=== PATIENT | male | born 1960 | race Caucasian/White ===

== ENCOUNTER → 2016-06-22 | Outpatient (CLI) | payer OTHER ==
--- NOTE | 2016-06-22 15:14 | XR ---
EXAMINATION TYPE: XR chest 2V DATE OF EXAM: 06/22/2016 3:01 PM COMPARISON: Prior chest x-ray May 03, 2016. HISTORY: COPD with shortness of breath and cough. TECHNIQUE: Frontal and lateral views of the chest are obtained. FINDINGS: Underlying emphysematous change is felt present. There is no focal air space opacity, pleu ral effusion, or pneumothorax seen. The cardiac silhouette size is within normal limits. The osseo us structures are intact. IMPRESSION: Chronic emphysematous change without acute pulmonary process. No significant change from prior.
== END | disposition home or self-care (01) ==
LOC: RADXRMAIN 14:27
PROVIDERS: ATTEND Family Medicine
DX: J43.9 Emphysema, unspecified (principal)
CPT/HCPCS: 71020

== ENCOUNTER → 2016-09-27 | Outpatient (CLI) | payer OTHER ==
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
== END | disposition home or self-care (01) ==
LOC: RADXRMAIN 15:43
PROVIDERS: ATTEND Family Medicine
DX: M54.42 Lumbago with sciatica, left side (principal)
CPT/HCPCS: 72072; 72100

== ENCOUNTER → 2016-10-12 | Outpatient (CLI) | payer OTHER ==
--- NOTE | 2016-10-12 17:26 | XR ---
EXAMINATION TYPE: XR elbow complete LT DATE OF EXAM: 10/12/2016 COMPARISON: NONE HISTORY: Pain TECHNIQUE: 3 views FINDINGS: I see no fracture nor dislocation. Joint spaces are normal. There is no sign of elbow joint effusion. IMPRESSION: Negative left elbow exam.
== END | disposition home or self-care (01) ==
LOC: RADXRMAIN 16:05
PROVIDERS: ATTEND Nurse Practitioner Family
DX: M25.522 Pain in left elbow (principal)

== ENCOUNTER → 2016-10-28 | Outpatient (CLI) | payer OTHER ==
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
== END | disposition home or self-care (01) ==
LOC: RADMRIMAIN 12:40
PROVIDERS: ATTEND Psychiatry & Neurology Neurology
DX: M51.16 Intervertebral disc disorders with radiculopathy, lumbar region (principal); M50.222 Other cervical disc displacement at C5-C6 level
CPT/HCPCS: 72141; 72148

== ENCOUNTER → 2016-11-16 | Outpatient (CLI) | payer OTHER ==
--- NOTE | 2016-11-16 21:42 | MR ---
Left elbow MRI HISTORY: Left elbow pain Multiplanar multisequence imaging through the left elbow Correlation to plain film 10/12/2016 There is abnormal increased signal involving the common extensor tendon origin compatible with, exten sor tendinitis and partial tear. Biceps tendon shows a normal insertion. Abnormal marrow signal prese nt within the radial head medially may represent a small focus of subchondral edema or possibly geode formation. Articular cartilage signal is thought to be maintained. There is normal insertion of the triceps tendon. Muscle signal is normal. Some subcutaneous edema changes present along the level of t he medial humeral epicondyle, the tendon shows some fluid signal near its origin, a small tear may be present at this level. Small amount of fluid is present within the joint. IMPRESSION: Findings suggestive of tendinosis, partial tear of the common extensor tendon greater hunter n the common flexor tendon origins. Small amount of arthropathy change suspected at the radial head a t its medial aspect.
== END | disposition home or self-care (01) ==
LOC: RADMRIMAIN 20:39
PROVIDERS: ATTEND Nurse Practitioner Family
DX: M25.552 Pain in left hip (principal)

== ENCOUNTER 2016-11-18 18:45 | Emergency (ER) | payer OTHER ==
[2016-11-18 18:57] VITALS: BP 138/86; PULSE 93; RESP 20; TEMP 98
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
== END 2016-11-18 19:25 | disposition home or self-care (01) ==
LOC: EC 18:45
DX: T22.252A Burn of second degree of left shoulder, initial encounter (principal); X58.XXXA Exposure to other specified factors, initial encounter; Z79.899 Other long term (current) drug therapy; M06.9 Rheumatoid arthritis, unspecified; Z87.891 Personal history of nicotine dependence
CPT/HCPCS: 99283

== ENCOUNTER 2017-08-01 16:58 | Emergency (ER) | payer OTHER ==
[2017-08-01 17:35] VITALS: BP 134/74; PULSE 55; RESP 18; TEMP 97.8
[2017-08-01] MEDS ORDERED: KETOROLAC 60 MG/2 ML VIAL IM STA (18:56)
[2017-08-01] MEDS ORDERED: ORPHENADRINE 30 MG/ML 2 ML VIAL IM STA (18:56)
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
== END 2017-08-01 19:40 | disposition home or self-care (01) ==
LOC: EC 16:58
DX: S16.1XXA Strain of muscle, fascia and tendon at neck level, initial encounter (principal); M19.90 Unspecified osteoarthritis, unspecified site; Z87.891 Personal history of nicotine dependence; Z79.1 Long term (current) use of non-steroidal anti-inflammatories (NSAID); V49.9XXA Car occupant (driver) (passenger) injured in unspecified traffic accident, initial encounter
CPT/HCPCS: 99283; 96372 ×2; J2360; J1885

== ENCOUNTER 2018-05-06 23:01 | Emergency (ER) | payer OTHER ==
[2018-05-06 23:17] VITALS: BP 128/79; PULSE 76; RESP 18; TEMP 98.1
[2018-05-06] MEDS ORDERED: AMOXIC-POT CLAV 875MG STARTER 2 EACH TABLET PO STA (23:35)
--- NOTE | 2018-05-06 23:39 | ED ---
General Adult HPI - General Chief complaint: Skin/Abscess/Foreign Body Stated complaint: Facial Swelling Time Seen by Provider: 05/06/18 23:26 Source: patient, RN notes reviewed Mode of arrival: ambulatory Limitations: no limitations - History of Present Illness Initial comments: Patient is a pleasant 58-year-old male presenting to the emergency Department with right-sided facial swelling and discomfort. Onset of symptoms was around 6 PM. Discomfort progressively worse. At one point it seemed like it may be getting better however has worsened since then. No fevers. No trauma. Only right-sided involvement. Patient has not noticed any erythema. No history of similar symptoms previously. Discomfort is moderate. - Related Data Home Medications Medication Instructions Recorded Confirmed Zolpidem Tartrate [Ambien] 5 mg PO HS PRN 12/11/14 05/03/16 Albuterol Inhaler [Ventolin Hfa 1 puff INHALATION RT-Q6H PRN 05/03/16 05/03/16 Inhaler] HYDROcodone/APAP 7.5-325MG [[place] 1 tab PO HS PRN 05/03/16 05/03/16 7.5-325] Mag Carb/Aluminum Hydrox/Algin 10 ml PO BID PRN 05/03/16 05/03/16 [Gaviscon Extra Strength Liquid] Meloxicam [Mobic] 7.5 mg PO DAILY 05/03/16 05/03/16 Multivitamins, Thera [Multivitamin] 1 tab PO DAILY 05/03/16 05/03/16 [place]-3 Fatty Acids/Fish Oil [Fish 1 cap PO DAILY 05/03/16 05/03/16 Oil 1,000 mg Softgel] Previous Rx's Medication Instructions Recorded Lidocaine Viscous 2% [Xylocaine 15 ml MUCOUS MEM Q4H 3 Days ml 05/03/16 Viscous] Bacitracin Oint 28.4 gm TOPICAL BID #1 tube 11/18/16 Orphenadrine [Norflex] 100 mg PO Q12H #10 tablet.er 08/01/17 predniSONE 50 mg PO DAILY #5 tab 08/01/17 Amoxic-Pot Clav 875-125Mg 1 tab PO Q12HR #20 tablet 05/06/18 [Augmentin 875-125] Allergies Allergy/AdvReac Type Severity Reaction Status Date / Time varenicline [From Chantix] AdvReac Unknown Verified 05/06/18 23:17 Review of Systems ROS Statement: Those systems with pertinent positive or pertinent negative responses have been documented in the HPI. ROS Other: All systems not noted in ROS Statement are negative. Constitutional: Denies: fever, chills Eyes: Denies: eye pain ENT: Denies: ear pain, throat pain, dental pain Respiratory: Denies: cough, dyspnea Cardiovascular: Denies: chest pain Endocrine: Denies: fatigue Gastrointestinal: Denies: abdominal pain Genitourinary: Denies: dysuria Musculoskeletal: Denies: back pain Skin: Denies: rash Neurological: Denies: weakness Past Medical History Past Medical History: Chest Pain / Angina, COPD, GERD/Reflux, Hyperlipidemia, Osteoarthritis (OA), Prostate Disorder, Rheumatoid Arthritis (RA) History of Any Multi-Drug Resistant Organisms: None Reported Past Surgical History: No Surgical Hx Reported Past Psychological History: No Psychological Hx Reported Smoking Status: Current every day smoker Past Alcohol Use History: Occasional Past Drug Use History: None Reported General Exam Limitations: no limitations General appearance: alert, in no apparent distress Head exam: Present: atraumatic Eye exam: Present: normal appearance ENT exam: Present: normal oropharynx, other (Right parotid gland is mildly swollen and tender. No Erythema) Neck exam: Present: normal inspection. Absent: lymphadenopathy Respiratory exam: Present: normal lung sounds bilaterally Cardiovascular Exam: Present: regular rate, normal rhythm GI/Abdominal exam: Present: soft. Absent: tenderness Neurological exam: Present: alert, CN II-XII intact Psychiatric exam: Present: normal affect, normal mood Skin exam: Present: normal color Course Vital Signs 05/06/18 23:12 Temperature 98.1 F Pulse Rate 76 Respiratory 18 Rate Blood Pressure 128/79 Disposition Clinical Impression: Parotiditis Disposition: HOME SELF-CARE Condition: Stable Instructions: Parotid Duct Obstruction (ED) Additional Instructions: Please follow-up with primary care physician in the next couple days for recheck. If symptoms continue you may need follow-up with ENT in the future. Use hard candies to promote salivation. Return for fevers, increased pain, redness, swelling, worsening symptoms or other concerns. Prescriptions: Amoxic-Pot Clav 875-125Mg [Augmentin 875-125] 1 tab PO Q12HR #20 tablet Is patient prescribed a controlled substance at d/c from ED?: No Referrals: Tunde Ashley III, MD [Primary Care Provider] - 1-2 days Time of Disposition: 23:39
== END 2018-05-06 23:54 | disposition home or self-care (01) ==
LOC: EC 23:01
DX: K11.20 Sialoadenitis, unspecified (principal); J44.9 Chronic obstructive pulmonary disease, unspecified; M19.90 Unspecified osteoarthritis, unspecified site; M06.9 Rheumatoid arthritis, unspecified; F17.200 Nicotine dependence, unspecified, uncomplicated; Z79.1 Long term (current) use of non-steroidal anti-inflammatories (NSAID); Z88.8 Allergy status to other drugs, medicaments and biological substances
CPT/HCPCS: 99283

== ENCOUNTER 2018-06-28 22:29 | Emergency (ER) | payer OTHER ==
[2018-06-28 22:34] VITALS: TEMP 97.8
[2018-06-28] MEDS ORDERED: AMOXIC-POT CLAV 875MG STARTER 2 EACH TABLET PO STA (23:38)
[2018-06-28] MEDS ORDERED: KETOROLAC 30 MG/ML 1 ML VIAL IM STA (23:39)
--- NOTE | 2018-06-28 23:41 | ED ---
ENT HPI - General Chief complaint: ENT Stated complaint: Swollen face Time Seen by Provider: 06/28/18 23:03 Source: patient Mode of arrival: ambulatory Limitations: no limitations - History of Present Illness Initial comments: 58-year-old male patient presents to the emergency department today for evaluation of right-sided facial swelling. Patient states this started at 4 PM this afternoon. Patient states that he has also had a very dry mouth with this. States that he has had a blocked salivary gland in the past and this feels similar. Patient denies taking any medication or using any measures to improve his symptoms. Denies any fevers or chills with this. Denies any difficulty swallowing or any trismus. Denies sore throat. Patient denies any recent rash, shortness breath, chest pain, abdominal pain, nausea, vomiting, diarrhea, constipation, back pain, numbness, tingling, dizziness, weakness, hematuria, dysuria, urinary urgency, urinary frequency, headache, visual changes , or any other complaints. - Related Data Home Medications Medication Instructions Recorded Confirmed Zolpidem Tartrate [Ambien] 5 mg PO HS PRN 12/11/14 05/03/16 Albuterol Inhaler [Ventolin Hfa 1 puff INHALATION RT-Q6H PRN 05/03/16 05/03/16 Inhaler] HYDROcodone/APAP 7.5-325MG [[place] 1 tab PO HS PRN 05/03/16 05/03/16 7.5-325] Mag Carb/Aluminum Hydrox/Algin 10 ml PO BID PRN 05/03/16 05/03/16 [Gaviscon Extra Strength Liquid] Meloxicam [Mobic] 7.5 mg PO DAILY 05/03/16 05/03/16 Multivitamins, Thera [Multivitamin] 1 tab PO DAILY 05/03/16 05/03/16 [place]-3 Fatty Acids/Fish Oil [Fish 1 cap PO DAILY 05/03/16 05/03/16 Oil 1,000 mg Softgel] Previous Rx's Medication Instructions Recorded Lidocaine Viscous 2% [Xylocaine 15 ml MUCOUS MEM Q4H 3 Days ml 05/03/16 Viscous] Bacitracin Oint 28.4 gm TOPICAL BID #1 tube 11/18/16 Orphenadrine [Norflex] 100 mg PO Q12H #10 tablet.er 08/01/17 predniSONE 50 mg PO DAILY #5 tab 08/01/17 Amoxic-Pot Clav 875-125Mg 1 tab PO Q12HR #20 tablet 05/06/18 [Augmentin 875-125] Amoxic-Pot Clav 875-125Mg 1 tab PO Q12HR #20 tablet 06/28/18 [Augmentin 875-125] Allergies Allergy/AdvReac Type Severity Reaction Status Date / Time varenicline [From Chantix] AdvReac Unknown Verified 06/28/18 23:09 Review of Systems ROS Statement: Those systems with pertinent positive or pertinent negative responses have been documented in the HPI. ROS Other: All systems not noted in ROS Statement are negative. Past Medical History Past Medical History: Chest Pain / Angina, COPD, GERD/Reflux, Hyperlipidemia, Osteoarthritis (OA), Prostate Disorder, Rheumatoid Arthritis (RA) History of Any Multi-Drug Resistant Organisms: None Reported Past Surgical History: No Surgical Hx Reported Past Psychological History: No Psychological Hx Reported Smoking Status: Current some day smoker Past Alcohol Use History: Occasional Past Drug Use History: None Reported General Exam Limitations: no limitations General appearance: alert, in no apparent distress, other (This is a well- developed, well-nourished adult male patient in no acute distress. Vital signs upon presentation are temperature 97.8F, pulse 88, respirations 19, blood pressure 132/86, pulse ox 94% on room air.) Eye exam: Present: normal appearance, PERRL, EOMI. Absent: scleral icterus, conjunctival injection, periorbital swelling ENT exam: Present: normal oropharynx, mucous membranes moist, TM's normal bilaterally, other (Patient has right sided facial swelling to the submandibular region. Area is tender to touch. No erythema. Palpation around the right lower dentition is unremarkable no evidence of abscess.). Absent: normal exam Neck exam: Present: normal inspection. Absent: tenderness, meningismus, lymphadenopathy Respiratory exam: Present: normal lung sounds bilaterally. Absent: respiratory distress, wheezes, rales, rhonchi, stridor Cardiovascular Exam: Present: regular rate, normal rhythm, normal heart sounds. Absent: systolic murmur, diastolic murmur, rubs, gallop, clicks Neurological exam: Present: alert, oriented X3, CN II-XII intact Psychiatric exam: Present: normal affect, normal mood Skin exam: Present: warm, dry, intact, normal color. Absent: rash Course Vital Signs 06/28/18 06/28/18 22:30 23:53 Temperature 97.8 F Pulse Rate 88 86 Respiratory 19 18 Rate Blood Pressure 132/86 131/91 O2 Sat by Pulse 94 L 94 L Oximetry Medical Decision Making - Medical Decision Making 58 yearr-old male patient presents to the emergency department today for evaluation of swelling to the right side of his face. Physical examination does reveal swelling and tenderness to the submandibular region. He is afebrile. Swallowing without difficulty. Has no trismus. Patient has had salivary gland blockage in the past and states this feels similar. Patient will be discharged home with instructions to suck on hard candies especially lemon drops to promote salivation. He is given a prescription for augmentin for possiblity of infection to the salivary gland. He is instructed to follow- up with the ENT specialist for further evaluation. Return parameters were discussed in detail. He verbalizes understanding and agrees with this plan. Disposition Clinical Impression: Sialoadenitis Disposition: HOME SELF-CARE Condition: Good Instructions (If sedation given, give patient instructions): Sialoadenitis (ED) Additional Instructions: Second hard candies or lemon drops to promote salivation. Complete antibiotic prescription and full. Follow-up with the ears, nose, throat specialist for further evaluation as soon as possible. Return to the emergency department immediately for any new, worsening, or concerning symptoms. Prescriptions: Amoxic-Pot Clav 875-125Mg [Augmentin 875-125] 1 tab PO Q12HR #20 tablet Is patient prescribed a controlled substance at d/c from ED?: No Referrals: Tunde Ashley III, MD [Primary Care Provider] - 1-2 days Time of Disposition: 23:41
[2018-06-28 23:56] VITALS: BP 131/91; PULSE 86; RESP 18
== END 2018-06-28 23:53 | disposition home or self-care (01) ==
LOC: EC 22:29
DX: K11.20 Sialoadenitis, unspecified (principal); J44.9 Chronic obstructive pulmonary disease, unspecified; M19.90 Unspecified osteoarthritis, unspecified site; M06.9 Rheumatoid arthritis, unspecified; F17.200 Nicotine dependence, unspecified, uncomplicated; Z87.19 Personal history of other diseases of the digestive system; Z79.1 Long term (current) use of non-steroidal anti-inflammatories (NSAID); Z88.8 Allergy status to other drugs, medicaments and biological substances
CPT/HCPCS: 99283; 96372; J1885

== ENCOUNTER 2018-07-25 08:27 | Emergency (ER) | payer OTHER ==
[2018-07-25 08:35] VITALS: RESP 18
[2018-07-25] MEDS ORDERED: FAMOTIDINE 20 MG/2 ML VIAL IV STA (09:39)
[2018-07-25] MEDS ORDERED: ONDANSETRON 4 MG/2 ML VIAL IVP STA (09:39)
[2018-07-25] MEDS ORDERED: SODIUM CHLORIDE 0.9% 500 ML 500 ML IV STA (09:39)
--- NOTE | 2018-07-25 09:43 | ED ---
General Adult HPI - General Chief complaint: GI Bleed Stated complaint: black stool/upper abdominal pain Time Seen by Provider: 07/25/18 08:49 Source: patient, RN notes reviewed Mode of arrival: ambulatory Limitations: no limitations - History of Present Illness Initial comments: Patient is a pleasant 58-year-old male presenting to the emergency Department with epigastric discomfort. Symptoms have been present and progressive over the past several days. Patient was somewhat constipated and took Senokot. Following this patient has had black stools. Patient has been nauseated and did vomit a couple times. No color change noticed with emesis. No fevers. Discomfort is epigastric without radiation. No history of similar symptoms previously. Patient does occasionally take some arthritis medication with aspirin and it. Patient states he takes this usually about once per day, sometimes twice. Patient has tried Pepto-Bismol over the past couple of days without improvement of symptoms. Patient has had decreased appetite. - Related Data Home Medications Medication Instructions Recorded Confirmed HYDROcodone/APAP 7.5-325MG [[place] 1 tab PO BID PRN 05/03/16 07/25/18 7.5-325] Multivitamins, Thera [Multivitamin] 1 tab PO DAILY 05/03/16 07/25/18 [place]-3 Fatty Acids/Fish Oil [Fish 1 cap PO DAILY 05/03/16 07/25/18 Oil 1,000 mg Softgel] Ergocalciferol [Vitamin D2] 50,000 unit PO FR 07/25/18 07/25/18 Lipitor (Unknown) 1 tab PO DAILY 07/25/18 07/25/18 Sertraline [Zoloft] 100 mg PO DAILY 07/25/18 07/25/18 Previous Rx's Medication Instructions Recorded Ondansetron Odt [Zofran Odt] 4 mg PO Q8HR PRN #10 tab 07/25/18 Pantoprazole [Protonix] 40 mg PO DAILY #30 tablet. 07/25/18 Allergies Allergy/AdvReac Type Severity Reaction Status Date / Time varenicline [From Chantix] AdvReac Unknown Verified 07/25/18 10:35 Review of Systems ROS Statement: Those systems with pertinent positive or pertinent negative responses have been documented in the HPI. ROS Other: All systems not noted in ROS Statement are negative. Constitutional: Denies: fever Eyes: Denies: eye pain ENT: Denies: ear pain Respiratory: Denies: cough Cardiovascular: Denies: chest pain Endocrine: Denies: fatigue Gastrointestinal: Reports: abdominal pain, nausea, vomiting, melena Genitourinary: Denies: dysuria Musculoskeletal: Denies: back pain Skin: Denies: rash Neurological: Denies: headache Past Medical History Past Medical History: Chest Pain / Angina, COPD, GERD/Reflux, Hyperlipidemia, Osteoarthritis (OA), Prostate Disorder, Rheumatoid Arthritis (RA) History of Any Multi-Drug Resistant Organisms: None Reported Past Surgical History: No Surgical Hx Reported Past Psychological History: No Psychological Hx Reported Smoking Status: Current some day smoker Past Alcohol Use History: Occasional Past Drug Use History: None Reported General Exam Limitations: no limitations General appearance: alert, in no apparent distress Head exam: Present: atraumatic Eye exam: Present: normal appearance Neck exam: Present: normal inspection Respiratory exam: Present: normal lung sounds bilaterally Cardiovascular Exam: Present: regular rate, normal rhythm Expanded Peripheral pulses: 2+: Posterior Tibialis (R), Posterior Tibialis (L) GI/Abdominal exam: Present: soft, tenderness (Moderate epigastric tenderness to palpation), normal bowel sounds. Absent: distended, guarding, rebound, rigid, pulsatile mass Rectal exam: Present: normal inspection Extremities exam: Present: normal inspection Neurological exam: Present: alert Psychiatric exam: Present: normal affect, normal mood Skin exam: Present: normal color Course Vital Signs 07/25/18 08:34 Temperature 98.4 F Pulse Rate 112 H Respiratory 18 Rate Blood Pressure 124/85 O2 Sat by Pulse 97 Oximetry Medical Decision Making - Medical Decision Making Patient reevaluated and improved. Patient states symptoms are tolerable at this time. Patient is comfortable with discharge home. Patient updated on results and need for follow-up. Patient is aware that he will need to take medication as well as need EGD and follow-up regarding concerns for pulmonary nodule and lesion of the pancreas. Patient is made aware that his doctor can review the films and ordered these follow-up test for him. - Lab Data Result diagrams: 07/25/18 10:04 07/25/18 10:04 Lab Results 07/25/18 07/25/18 07/25/18 Range/Units 10:04 10:04 10:04 WBC 9.3 (3.8-10.6) k/uL RBC 5.65 (4.30-5.90) m/uL Hgb 16.9 (13.0-17.5) gm/dL Hct 50.7 (39.0-53.0) % MCV 89.8 (80.0-100.0) fL MCH 30.0 (25.0-35.0) pg MCHC 33.4 (31.0-37.0) g/dL RDW 13.5 (11.5-15.5) % Plt Count 225 (150-450) k/uL Neutrophils % 67 % Lymphocytes % 21 % Monocytes % 6 % Eosinophils % 4 % Basophils % 1 % Neutrophils # 6.2 (1.3-7.7) k/uL Lymphocytes # 1.9 (1.0-4.8) k/uL Monocytes # 0.6 (0-1.0) k/uL Eosinophils # 0.4 (0-0.7) k/uL Basophils # 0.1 (0-0.2) k/uL PT (9.0-12.0) sec INR (<1.2) APTT (22.0-30.0) sec Sodium 141 (137-145) mmol/L Potassium 4.4 (3.5-5.1) mmol/L Chloride 107 (98-107) mmol/L Carbon Dioxide 26 (22-30) mmol/L Anion Gap 8 mmol/L BUN 24 H (9-20) mg/dL Creatinine 0.88 (0.66-1.25) mg/dL Est GFR (CKD-EPI)AfAm >90 (>60 ml/min/1.73 sqM) Est GFR (CKD-EPI)NonAf >90 (>60 ml/min/1.73 sqM) Glucose 95 (74-99) mg/dL Calcium 9.9 (8.4-10.2) mg/dL Total Bilirubin 0.8 (0.2-1.3) mg/dL AST 18 (17-59) U/L ALT 32 (21-72) U/L Alkaline Phosphatase 79 (38-126) U/L Total Protein 6.9 (6.3-8.2) g/dL Albumin 4.2 (3.5-5.0) g/dL Lipase 65 (23-300) U/L Stool Occult Blood Negative (Negative) 07/25/18 Range/Units 10:04 WBC (3.8-10.6) k/uL RBC (4.30-5.90) m/uL Hgb (13.0-17.5) gm/dL Hct (39.0-53.0) % MCV (80.0-100.0) fL MCH (25.0-35.0) pg MCHC (31.0-37.0) g/dL RDW (11.5-15.5) % Plt Count (150-450) k/uL Neutrophils % % Lymphocytes % % Monocytes % % Eosinophils % % Basophils % % Neutrophils # (1.3-7.7) k/uL Lymphocytes # (1.0-4.8) k/uL Monocytes # (0-1.0) k/uL Eosinophils # (0-0.7) k/uL Basophils # (0-0.2) k/uL PT 10.1 (9.0-12.0) sec INR 0.9 (<1.2) APTT 29.3 (22.0-30.0) sec Sodium (137-145) mmol/L Potassium (3.5-5.1) mmol/L Chloride (98-107) mmol/L Carbon Dioxide (22-30) mmol/L Anion Gap mmol/L BUN (9-20) mg/dL Creatinine (0.66-1.25) mg/dL Est GFR (CKD-EPI)AfAm (>60 ml/min/1.73 sqM) Est GFR (CKD-EPI)NonAf (>60 ml/min/1.73 sqM) Glucose (74-99) mg/dL Calcium (8.4-10.2) mg/dL Total Bilirubin (0.2-1.3) mg/dL AST (17-59) U/L ALT (21-72) U/L Alkaline Phosphatase (38-126) U/L Total Protein (6.3-8.2) g/dL Albumin (3.5-5.0) g/dL Lipase (23-300) U/L Stool Occult Blood (Negative) - Radiology Data Radiology results: report reviewed (Computed tomography scan of the abdomen pelvis does have concern for peptic ulcer disease duodenum. Also pulmonary nodule and probable cystic lesion pancreatic head.) Disposition Clinical Impression: Peptic ulcer, Abdominal pain Disposition: HOME SELF-CARE Condition: Stable Instructions (If sedation given, give patient instructions): Abdominal Pain (ED), Peptic Ulcer (ED) Additional Instructions: Please follow-up with primary care physician in the next couple of days for recheck. You will likely need to have further testing such as EGD or similar. Please also have primary care physician review computed tomography scan results regarding follow-up testing. Return for increased pain, vomiting, not tolerating oral intake, worsening symptoms or other concerns. Prescriptions: Pantoprazole [Protonix] 40 mg PO DAILY #30 tablet. Ondansetron Odt [Zofran Odt] 4 mg PO Q8HR PRN #10 tab PRN Reason: Nausea Is patient prescribed a controlled substance at d/c from ED?: No Referrals: Tunde Ashley III, MD [Primary Care Provider] - 1-2 days Lolis Galeano MD [STAFF PHYSICIAN] - 1-2 days Time of Disposition: 11:15
[2018-07-25 10:22] LABS: Basophils # (A) 0.1 k/uL (0-0.2); Basophils % (A) 1 %; Eosinophils # (A) 0.4 k/uL (0-0.7); Eosinophils % (A) 4 %; HCT 50.7 % (39.0-53.0); HGB 16.9 gm/dL (13.0-17.5); Lymphocytes # (A) 1.9 k/uL (1.0-4.8); Lymphocytes % (A) 21 %; MCHC 33.4 g/dL (31.0-37.0); MCV 89.8 fL (80.0-100.0); Mean Platelet Volume 7.1; Monocytes # (A) 0.6 k/uL (0-1.0); Monocytes % (A) 6 %; Neutrophils # (A) 6.2 k/uL (1.3-7.7); Neutrophils % (A) 67 %; Platelet Count 225 k/uL (150-450); RBC 5.65 m/uL (4.30-5.90); RDW 13.5 % (11.5-15.5); WBC 9.3 k/uL (3.8-10.6)
[2018-07-25 10:30] LABS: INR 0.9 (<1.2); Partial Thromboplastin Time 29.3 sec (22.0-30.0); Prothrombin Time 10.1 sec (9.0-12.0)
[2018-07-25 10:43] LABS: ALT 32 U/L (21-72); AST 18 U/L (17-59); Albumin 4.2 g/dL (3.5-5.0); Alkaline Phosphatase 79 U/L (38-126); Anion Gap 8 mmol/L; Blood Urea Nitrogen 24 mg/dL (9-20); Calcium 9.9 mg/dL (8.4-10.2); Carbon Dioxide 26 mmol/L (22-30); Chloride 107 mmol/L (98-107); Glucose 95 mg/dL (74-99); Lipase 65 U/L (23-300); Potassium 4.4 mmol/L (3.5-5.1); Sodium 141 mmol/L (137-145); Total Bilirubin 0.8 mg/dL (0.2-1.3); Total Protein 6.9 g/dL (6.3-8.2)
--- NOTE | 2018-07-25 10:56 | CT ---
EXAMINATION TYPE: CT abdomen pelvis w con DATE OF EXAM: 07/25/2018 COMPARISON: NONE HISTORY: 58-year-old male RUQ pain TECHNIQUE: Contiguous axial scanning of the abdomen and pelvis following administration of 100 ml Iso feroz 300 IV contrast. Delayed images through the kidneys and coronal/sagittal reconstructions perform ed. CT DLP: 879 mGycm Automated exposure control for dose reduction was used. FINDINGS: Heart normal size without pericardial effusion. Prominent dependent groundglass posterior lung bases, probably atelectasis. Partially visualized 4 mm peripheral right middle lobe pulmonary nodule, axial image 1. Tiny hiatal hernia. No focal liver lesion or biliary ductal dilatation. Portal venous system is patent. Incidental 6 mm hypodense lesion in the pancreatic head, axial image 33. Gallbladder, adrenal glands, kidneys, spleen appear within normal limits. There is apparent focal mucosal hyperemia of the first and second portions of the duodenum and possib le very subtle eccentric wall thickening and a loculated air, refer to coronal image 33, axial image 30, and sagittal image 51. Couple adjacent borderline sized lymph nodes measuring up to 6 mm. No dilated small bowel, free fluid, or free air. Tiny fatty umbilical hernia. Normal appendix. Mild stool burden. Oral contrast progressed to the rectum. Mild circumferential wall thickening of the sigmoid colon likely due to nondistention. Bladder is urine distended. No abnormal fluid collection in the pelvis or pelvic lymphadenopathy. Bones: Mild degenerative spurring of the hips. Bone island in the right femoral head. Some facet arth ropathy lower lumbar spine. IMPRESSION: 1. SOME APPARENT MUCOSAL HYPEREMIA OF THE FIRST AND SECOND PORTION OF THE DUODENUM AND POSSIBLE SUBTL E ECCENTRIC WALL THICKENING WITH A LOCULE OF AIR ALONG THE WALL OF THE PROXIMAL DUODENUM. CONSIDER UN DERLYING PEPTIC ULCER DISEASE. NO ABSCESS OR PERFORATION SEEN. 2. PARTIALLY VISUALIZED 4 MM RIGHT MIDDLE LOBE PULMONARY NODULE. SIX-MONTH FOLLOW-UP CONTRAST ENHANCE D CT CHEST RECOMMENDED TO REASSESS AND SURVEYED THE REMAINDER OF THE LUNGS. 3. A 6 MM HYPODENSE, PROBABLY CYSTIC LESION OF THE PANCREATIC HEAD. A ONE-YEAR FOLLOW-UP, PREFERABLY WITH MRI IS RECOMMENDED FOR AN INCIDENTAL LESION OF THIS SIZE.
[2018-07-25] MEDS ORDERED: PANTOPRAZOLE 40 MG TABLET PO STA (11:17)
[2018-07-25 11:49] VITALS: BP 125/96; PULSE 68; TEMP 97.8
== END 2018-07-25 11:49 | disposition home or self-care (01) ==
LOC: EC 08:27
DX: K27.4 Chronic or unspecified peptic ulcer, site unspecified, with hemorrhage (principal); E78.5 Hyperlipidemia, unspecified; F17.200 Nicotine dependence, unspecified, uncomplicated; Z79.899 Other long term (current) drug therapy; Z88.8 Allergy status to other drugs, medicaments and biological substances
CPT/HCPCS: 36415; 80053; 83690; 85025; 85610; 85730; 82272; 74177; 99284; 96374; 96375; 96361 ×2; J2405; Q9967

== ENCOUNTER 2018-08-08 15:13 | Emergency (ER) | payer OTHER ==
[2018-08-08] MEDS ORDERED: MORPHINE SULFATE 4 MG/ML SYRINGE IVP STA (16:06)
[2018-08-08] MEDS ORDERED: DIAZEPAM 5 MG TAB PO STA (16:07)
[2018-08-08] MEDS ORDERED: MORPHINE SULFATE 4 MG/ML SYRINGE IM STA (16:22)
[2018-08-08 16:28] LABS: Appearance,Urine Clear (Clear); Bilirubin,Urine Negative (Negative); Blood,Urine Negative (Negative); Color,Urine Yellow; Glucose,Urine (UA) Negative (Negative); Ketones,Urine Negative (Negative); Leukocyte Esterase,Urine Negative (Negative); Nitrite,Urine Negative (Negative); PH, Urine 5.5 (5.0-8.0); Protein,Urine Negative (Negative); Specific Gravity,Urine 1.026 (1.001-1.035)
--- NOTE | 2018-08-08 16:46 | ED ---
Back Pain HPI - General Chief Complaint: Back Pain/Injury Stated Complaint: R side pain Time Seen by Provider: 08/08/18 15:41 Source: patient Limitations: no limitations - History of Present Illness Initial Comments: 58-year-old male presenting today for chief complaint of low back pain. Patient states he has right-sided low back pain as been increasing for the past 2-3 days. Patient cannot think of a specific instance which would have initiate the pain. Patient denies loss of bowel bladder control, urinary retention, fever or chills IV drug use or history of cancer. Patient states there are nodules that they're watching on his lungs as well as a cyst on the pancreas. Patient states he has scheduled outpatient appointments for follow-up in the next 2-3 weeks. Patient denies recent weight loss he denies numbness tingling or loss sensation of the lower extremity. Patient does admit to history of chronic low back pain as well as right-sided sciatica. Patient denies any increase in the right-sided sciatica. Patient denies any urgency frequency dysuria or hematuria. Patient has a chest pain dyspnea and dyspnea on exertion nausea vomiting or abdominal pain. Patient denies testicular pain remaining review of system negative. Upon arrival patient appears well signs of acute distress. Patient had recent CT of the abdomen and pelvis which reviewed no abnormalities of the osseous structures. Vital signs within acceptable limits upon arrival patient and playing without difficulty. Appearing comfortable. - Related Data Home Medications Medication Instructions Recorded Confirmed HYDROcodone/APAP 7.5-325MG [[place] 1 tab PO BID PRN 05/03/16 08/08/18 7.5-325] Multivitamins, Thera [Multivitamin] 1 tab PO DAILY 05/03/16 08/08/18 [place]-3 Fatty Acids/Fish Oil [Fish 1 cap PO DAILY 05/03/16 08/08/18 Oil 1,000 mg Softgel] Ergocalciferol [Vitamin D2] 50,000 unit PO FR 07/25/18 08/08/18 Sertraline [Zoloft] 100 mg PO DAILY 07/25/18 08/08/18 Previous Rx's Medication Instructions Recorded Pantoprazole [Protonix] 40 mg PO DAILY #30 tablet. 07/25/18 Allergies Allergy/AdvReac Type Severity Reaction Status Date / Time varenicline [From Chantix] AdvReac Unknown Verified 08/08/18 17:02 Review of Systems ROS Statement: Those systems with pertinent positive or pertinent negative responses have been documented in the HPI. ROS Other: All systems not noted in ROS Statement are negative. Past Medical History Past Medical History: Chest Pain / Angina, COPD, GERD/Reflux, Hyperlipidemia, Osteoarthritis (OA), Prostate Disorder, Rheumatoid Arthritis (RA) History of Any Multi-Drug Resistant Organisms: None Reported Past Surgical History: No Surgical Hx Reported Past Psychological History: No Psychological Hx Reported Smoking Status: Current some day smoker Past Alcohol Use History: Occasional Past Drug Use History: None Reported General Exam - General Exam Comments Initial Comments: General: The patient is awake and alert, in no distress, and does not appear acutely ill. Eye: Pupils are equal, round and reactive to light, extra-ocular movements are intact. No nystagmus. There is normal conjunctiva bilaterally. No signs of icterus. Ears, nose, mouth and throat: There are moist mucous membranes and no oral lesions. Neck: The neck is supple, there is no tenderness or JVD. Cardiovascular: There is a regular rate and rhythm. No murmur, rub or gallop is appreciated. Respiratory: Lungs are clear to auscultation, respirations are non-labored, breath sounds are equal. No wheezes, stridor, rales, or rhonchi. Musculoskeletal: Small scabs located on various regions the body. Normal inspection of the cervical thoracic lumbar spine. There is no midline tenderness to palpation at the cervical thoracic or lumbar spine. Patient amidst to right-sided paravertebral tenderness. Palpable muscle spasm. Patient is able to fully range at the lumbar spine with forward flexion extension and lateral flexion and rotation. Patient does admit to discomfort with all ranges of motion. Normal ROM, no tenderness of the lower extremities negative straight leg raise bilaterally. Strength 5/5 of the lower extremities equal and comparison bilaterally. Sensation intact of the lower extremities including the saddle region equal comparison bilaterally. Radial and DP pulses equal bilaterally 2+. No myoclonus or fasciculations noted. Neurological: A&O x 3. CN II-XII intact, There are no obvious motor or sensory deficits. Coordination appears grossly intact. Speech is normal. Skin: Skin is warm and dry and no rashes or lesions are noted. Psychiatric: Cooperative, appropriate mood & affect, normal judgment. Limitations: no limitations Course Vital Signs 08/08/18 08/08/18 15:21 17:43 Temperature 98.4 F 98.2 F Pulse Rate 76 68 Respiratory 16 18 Rate Blood Pressure 111/77 119/89 O2 Sat by Pulse 98 94 L Oximetry Medical Decision Making - Medical Decision Making 58-year-old male presenting for low back pain. Patient had recent CT of the abdomen and pelvis revealing no acute osseous process. Patient denies injury. Patient denies IV drug use, fever chills or any other concerns for infectious etiology. Patient afebrile upon arrival. Patient has no neurological deficits. Patient has no midline tenderness. Patient has no C paravertebral tenderness. Urinalysis unremarkable. No hematuria. Patient has no abdominal pain, benign abdominal exam. At this time given no red flags with recent imaging studies and well appearing with no acute distress on exam, the patient stated for discharge. I discussed the case attending provider Dr. Josue was agreeable discharge and plan. Patient was provided pain medications emergency department. Upon reevaluation patient states it had almost resolved. Patient was given instruction to follow up outpatient with primary care provider. Patient verbalizes understanding. Patient discharged in stable condition where all return parameters discussed. All questions were answered to the best viability prior to patient's discharge. - Lab Data Lab Results 08/08/18 Range/Units 16:16 Urine Color Yellow Urine Appearance Clear (Clear) Urine pH 5.5 (5.0-8.0) Ur Specific [place] 1.026 (1.001-1.035) Urine Protein Negative (Negative) Urine Glucose (UA) Negative (Negative) Urine Ketones Negative (Negative) Urine Blood Negative (Negative) Urine Nitrite Negative (Negative) Urine Bilirubin Negative (Negative) Urine Urobilinogen 2.0 (<2.0) mg/dL Ur Leukocyte Esterase Negative (Negative) Disposition Clinical Impression: Low back strain, Acute exacerbation of chronic low back pain Disposition: HOME SELF-CARE Condition: Good Instructions (If sedation given, give patient instructions): Acute Low Back Pain (ED), Chronic Back Pain (ED) Additional Instructions: Please use medication as discussed. Please follow-up with family doctor in the next 2 days of symptoms have not improved. Please return to emergency room if the symptoms increase or worsen or for any other concerns. Is patient prescribed a controlled substance at d/c from ED?: No Referrals: Tunde Ashley III, MD [Primary Care Provider] - 1-2 days Time of Disposition: 16:45
[2018-08-08 17:47] VITALS: BP 119/89; PULSE 68; RESP 18; TEMP 98.2
== END 2018-08-08 17:47 | disposition home or self-care (01) ==
LOC: EC 15:13
DX: S39.012A Strain of muscle, fascia and tendon of lower back, initial encounter (principal); F17.200 Nicotine dependence, unspecified, uncomplicated; Z87.39 Personal history of other diseases of the musculoskeletal system and connective tissue; Z79.899 Other long term (current) drug therapy; Z88.8 Allergy status to other drugs, medicaments and biological substances; X58.XXXA Exposure to other specified factors, initial encounter
CPT/HCPCS: 81003; 96372; 99284

== ENCOUNTER → 2018-08-18 | Outpatient (CLI) | payer OTHER ==
--- NOTE | 2018-08-18 08:01 | MR ---
EXAMINATION TYPE: MR abdomen wo/w con DATE OF EXAM: 08/18/2018 COMPARISON: CT abdomen and pelvis July 25, 2018. HISTORY: abnormal CT CONTRAST: Standard multiplanar, multisequence MRI departmental protocol utilizing 8.5 mL intravenous Gadavist g adolinium contrast. Imaging is performed of the abdomen focusing on the pancreas. FINDINGS: Pancreas: Pancreas is overall normal in size. Duct is visualized but nondilated. There is suspected d ivisum as pancreatic duct appears to empty into second portion of duodenum caudal to the common bile duct seen best coronal image 17 series 201[address] Corresponding to CT there is a 5 by 3 mm T2 hyperintense focus in the pancreatic head just medial to the common bile duct coronal image 17 and axial image 14 series 501, lesion is too small to further characterize but does not show enhancement seen best delay ed phased axial image 225. No communication with adjacent minor pancreatic duct is noted. No surround ing fluid or fat stranding is seen. Other: Lung bases are grossly clear. The liver, gallbladder, spleen, and both adrenal glands are norm al in size. There is no concerning renal mass or hydronephrosis. There is no suspicious small or larg e bowel dilatation. There is no concerning abdominal fluid collection. Visualized osseous structures are intact. IMPRESSION: Correlating with CT there is 5 x 3 mm thin-walled cyst or cystic lesion without suspiciou s nodularity or solid component in the pancreatic head, almost certainly benign in etiology, no ducta l communication is seen. Advise repeat MRI in one-year time to reassess.
== END | disposition home or self-care (01) ==
LOC: RADMRIMAIN 06:52
DX: R93.5 Abnormal findings on diagnostic imaging of other abdominal regions, including retroperitoneum (principal)
CPT/HCPCS: 74183

== ENCOUNTER 2018-08-21 09:17 | Day surgery (SDC) | payer OTHER ==
[2018-08-17 12:45] VITALS: BMI 28.3
[~2018-08-21 09:17] MED LIST: LACTATED RINGERS 1,000 ML IV SCH; MIDAZOLAM (PF) 2 MG/2 ML VIAL IV PRN
[2018-08-21 09:44] VITALS: TEMP 97.7
[2018-08-21] MEDS ORDERED: LIDOCAINE 1% 20 ML VIAL (10MG/ML) FOR IV START INTRADERMA ONE (09:47)
[2018-08-21] MEDS ORDERED: LIDOCAINE 1% INJ 10MG/ML (20 ML MDV) ONE (10:28)
[2018-08-21] MEDS ORDERED: PROPOFOL 10 MG/ML 20 ML VIAL IV ONE (10:28)
[2018-08-21] MEDS ORDERED: fentaNYL (PF) 50 MCG/ML 2 ML AMP ONE (10:28)
--- NOTE | 2018-08-21 11:08 | P.PCN ---
Date of Procedure: 08/21/18 Procedure(s) Performed: Procedures: 1. Esophagogastroduodenoscopy and biopsy. 2. Total colonoscopy. Preoperative diagnosis: Abdominal pain and rectal bleeding. Postoperative diagnosis: 1. Small hiatal hernia with no obvious esophagitis or complicated reflux disease. 2. Antral gastritis. 3. Multiple biopsies obtained from the duodenum, antrum and esophagus. 4. Colon exam reveals low-grade internal hemorrhoids not bleeding at the time of the exam, otherwise normal colon and terminal ileum. Preparation: HalfLytely prep. Sedation: Was provided by anesthesia. Brief clinical history: The patient is a 58-year-old male who was evaluated in the office earlier this month following her visit to the emergency room last month for abdominal pain and rectal bleeding/black stools. CT scan showed possible ulcer and abnormalities of the lung then pancreas. He was started on omeprazole. This evaluation is to assess for inflammatory bowel disease, neoplasia, complicated reflux disease or other pathology. Procedure: With the patient on his left lateral decubitus position and after informed consent and adequate sedation, I passed the Olympus-GIF H190 video upper endoscope through the cricopharyngeus down the esophagus. GE junction was around 41 cm from the incisors and there was a small sliding hiatal hernia but no obvious esophagitis or complicated reflux disease. The endoscope was then passed into the stomach which was insufflated with air and inspected in detail including the retroflex view in the cardia. There was some mottling and erythema in the antrum and few scattered erosions but no bleeding or gastric outlet obstruction. Pyloric channel did not show any ulcers. Duodenal bulb, post bulbar area and descending duodenum appeared within normal limits. I obtained biopsies from the duodenum, antrum and esophagus then the endoscope was withdrawn and I proceeded to perform the colonoscopy. Perianal area did not show any fissures or fistulas. There were no masses felt on digital rectal examination. The Olympus CFH 190 L video colonoscope was then inserted in the rectum in the usual fashion and advanced to the cecum. I intubated the ileocecal valve and examined the terminal ileum. The mucosa appeared healthy. No polyps or tumors were seen or any obvious diverticular disease or other pathology. I retroflexed the endoscope in the rectum before the endoscope was withdrawn. Low-grade internal hemorrhoids were noted with no evidence of bleeding. The patient tolerated the procedure well. Plan: The patient was reassured. Discussed dietary measures and local care for hemorrhoids. Will await biopsy results. He is scheduled to follow-up in the office next month and further plans will be made based on his course and biopsy results. For colon cancer screening, I recommended repeat exam in 10 years. I will keep you updated on his progress.
[2018-08-21 11:20] VITALS: BP 136/93; PULSE 72; RESP 16
== END 2018-08-21 11:55 | disposition home or self-care (01) ==
LOC: ORWHC2ENDO 09:17
DX: K44.9 Diaphragmatic hernia without obstruction or gangrene (principal); K29.50 Unspecified chronic gastritis without bleeding; K64.8 Other hemorrhoids; J44.9 Chronic obstructive pulmonary disease, unspecified; M19.90 Unspecified osteoarthritis, unspecified site; E78.5 Hyperlipidemia, unspecified; Z88.8 Allergy status to other drugs, medicaments and biological substances; F17.210 Nicotine dependence, cigarettes, uncomplicated; M06.9 Rheumatoid arthritis, unspecified; I10 Essential (primary) hypertension; K21.9 Gastro-esophageal reflux disease without esophagitis; F32.9 Major depressive disorder, single episode, unspecified; Z79.891 Long term (current) use of opiate analgesic; Z79.899 Other long term (current) drug therapy
CPT/HCPCS: 88305; 45378; 43239; J2001; J3010; J2704

== ENCOUNTER → 2018-08-22 | Outpatient (CLI) | payer OTHER ==
--- NOTE | 2018-08-22 09:16 | CT ---
EXAMINATION TYPE: CT chest w con DATE OF EXAM: 08/22/2018 COMPARISON: CT abdomen pelvis dated 07/25/2018 HISTORY: lung nodule CT DLP: 363.9 mGycm. Automated Exposure Control for Dose Reduction was Utilized. TECHNIQUE: CT scan of the thorax is performed following with IV Contrast, patient injected with 100 mL of Isovue 300. FINDINGS: LUNGS: There is minimal background centrilobular emphysematous change. The previously seen 4 mm pulmo nary nodule is now contiguous with subsegmental atelectasis and obscured. Forming consolidations in t he right middle lobe and lingula are worsened from the prior of 07/25/2018 and demonstrates air bronch ograms. Minimal dependent bibasilar atelectasis is also identified. Main tracheal bronchial tree is p atent. MEDIASTINUM: There are no greater than 1 cm hilar or mediastinal lymph nodes. Main pulmonary artery is within normal limits measuring 2.7 cm. Thoracic aorta is within normal limits. Mild coronary arter y calcifications are present. No pericardial effusion is seen. OTHER: Very minimal retroareolar probable gynecomastia seen. Mild degree hepatic steatosis is seen wi th 2 small to accurately characterize hepatic lesions that are markedly hypointense and likely repres ent small cysts. Very small hiatal hernia is again noted. Gastric antrum thickening is unchanged and could relate to peristalsis or mild gastritis. Again a subcentimeter cystic pancreatic head lesion is appreciated. Intimal degenerative changes of the spine. IMPRESSION: The previously seen 4 mm right middle lobe pulmonary nodule is obscured by development of subsegmental atelectasis. Small consolidations within the right middle lobe and lingula demonstrate air bronchograms and may represent atelectasis or early developing pneumonia. Correlate with clinical symptoms. Follow-up chest CT in 12 months could ensure no growth of the underlying 4 mm known pulmon carina nodule.
== END | disposition home or self-care (01) ==
LOC: RADCTMAIN 06:57
PROVIDERS: ATTEND Internal Medicine
DX: R91.1 Solitary pulmonary nodule (principal)
CPT/HCPCS: 71260; Q9967

== ENCOUNTER → 2018-09-18 | Outpatient (CLI) | payer OTHER ==
[2018-08-25 13:12] VITALS: BMI 30.7
[2018-09-18 12:04] VITALS: BP 132/90; PULSE 90; RESP 18
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
== END | disposition home or self-care (01) ==
LOC: PNWHC3 11:45
PROVIDERS: ATTEND Anesthesiology
DX: M47.12 Other spondylosis with myelopathy, cervical region (principal); M47.816 Spondylosis without myelopathy or radiculopathy, lumbar region; F17.200 Nicotine dependence, unspecified, uncomplicated; Z88.8 Allergy status to other drugs, medicaments and biological substances
CPT/HCPCS: 99211

== ENCOUNTER → 2019-05-24 | Outpatient (CLI) | payer OTHER ==
[2019-05-24 17:29] LABS: African American GFR (CKD) 85.9 (60.0-200.0); Non-African American GFR(CKD) 74.1 (60.0-200.0)
== END | disposition home or self-care (01) ==
LOC: LABWHC1 08:28
PROVIDERS: ATTEND Family Medicine
DX: Z01.812 Encounter for preprocedural laboratory examination (principal)
CPT/HCPCS: 36415; 82565; 84520

== ENCOUNTER → 2019-05-26 | Outpatient (CLI) | payer OTHER ==
--- NOTE | 2019-05-26 13:43 | CT ---
EXAMINATION TYPE: CT chest w con DATE OF EXAM: 05/26/2019 COMPARISON: Prior CT chest 08/22/2018 HISTORY: Follow up nodule. CT DLP: 446.8 mGycm Automated exposure control for dose reduction was used. CONTRAST: CT scan of the chest is performed with IV Contrast, patient injected with 100 mL of Isovue 300. FINDINGS: LUNGS: The lungs are grossly stable, there is no concerning parenchymal mass or nodule identified. Some basilar scarring is again noted. The lingular abnormal density has improved as compared to prior exam. There is no pleural effusion or pneumothorax seen. The tracheobronchial tree is patent. MEDIASTINUM: There are no greater than 1 cm hilar or mediastinal lymph nodes. No pericardial effusi on is seen. AORTA: No additional significant abnormality is seen. OTHER: No additional significant abnormality is seen. IMPRESSION: No suspicious abnormalities evident
== END | disposition home or self-care (01) ==
LOC: RADCTMAIN 08:50
PROVIDERS: ATTEND Family Medicine
DX: R91.1 Solitary pulmonary nodule (principal)
CPT/HCPCS: 71260; Q9967

== ENCOUNTER → 2019-07-23 | Day surgery (SDC) | payer OTHER ==
[2019-07-20 09:22] VITALS: BMI 28.8
[~2019-07-23] MED LIST changes: +DEXAMETHASONE SOD PHOSPHATE 10 MG/ML 1 ML VIAL IV ONE; +HYDROcodone/APAP 7.5-325MG 1 EACH TAB PO ONE; +KETOROLAC 30 MG/ML 1 ML VIAL IVP ONE; +LIDOCAINE 1% (10MG/ML) FOR IV START INTRADERMA PRN; -MIDAZOLAM (PF) 2 MG/2 ML VIAL IV PRN; +MIDAZOLAM 2 MG/2 ML VIAL IV PRN; +MIDAZOLAM 2 MG/2 ML VIAL ONE; +OFLOXACIN 0.3% OTIC DROPS 5 ML BTL BOTH EARS ONE; +PROPOFOL 10 MG/ML 20 ML VIAL IV ONE; +Pre Op ABX Message 1 EACH MISC MISCELLANE ONE; +fentaNYL (PF) 50 MCG/ML 2 ML AMP IV PRN; +fentaNYL (PF) 50 MCG/ML 2 ML AMP ONE
--- NOTE | 2019-07-23 07:47 | HP ---
HISTORY AND PHYSICAL CHIEF COMPLAINT: Fluid in both ears. HISTORY OF PRESENT ILLNESS: This patient is a 59-year-old male who was originally seen in my office complaining of having a blocked sensation in both ears. The patient stated that back in April of 2019, he developed an upper respiratory tract infection and he was treated with antibiotics. After the infection resolved, he noticed that both ears were plugged. He was subsequently treated with more antibiotics at this did not help. At the time that he was seen in my office, clinical examination of the ears revealed chronic bilateral serous otitis media so-called glue ear. The patient was placed on 2 courses of oral steroids, Decadron dose Dieudonne. He was seen in the office approximately 3 weeks later and at that time, he stated that the ears still felt plugged and clinical examination revealed still revealed the presence of fluid in both middle ear spaces. It was therefore recommended that he undergo a bilateral myringotomy with insertion of ventilation tubes under IV sedation with MAC. PAST MEDICAL HISTORY: Reveals that the patient in is in the process of quitting smoking. He has allergies to CHANTIX and PREDNISONE. CURRENT MEDICATIONS: Include Atorvastatin, [place], multivitamins, vitamin D, Protonix, Temazepam, and also an inhaler for his emphysema. REVIEW OF SYSTEMS: Reveals that the respiratory system is positive for emphysema/COPD. Gastrointestinal system is positive for GERD, gastroesophageal reflux disorder, metabolic endocrine system is positive for hypercholesterolemia and the musculoskeletal system is positive for osteoarthritis. The remainder of the review of systems is unremarkable. PHYSICAL EXAM: The remainder of the physical exam is unremarkable. PHYSICAL EXAMINATION: This patient is a 59-year-old male who was alert and cooperative. HEENT: Examination, patient is normocephalic. Tympanic membranes are dull bilaterally with fluid in both middle ear spaces. Pupils are equal, round, react to light and accommodation. Extraocular movements within normal limits. Intranasal examination reveals moderate to severe septal deviation, compensatory hypertrophy inferior turbinates, moderate amount of mucus on the mucous membrane draining down the posterior pharynx. Examination of oropharynx, cranial nerves 2 through 12 and remainder of the head and neck exam are all within normal limits. CHEST, CARDIOVASCULAR: Both lung luna are clear to percussion and auscultation. Patient is in regular sinus rhythm, S1, S2 are present. There was no murmurs. S3 or S4. Peripheral pulses are bilaterally symmetrical within normal limits. ABDOMEN: There is no evidence of masses, megaly, or tenderness. ABDOMEN: Soft skin is unremarkable musculoskeletal neurological and within normal limits rectal examination exam is deferred at this time because the patient has this done on a regular basis at his family physician's office the remainder of physical exam is essentially unremarkable. IMPRESSION: Chronic bilateral serous otitis media. PLAN: The patient is scheduled undergo a bilateral myringotomy with insertion of ventilation tubes under IV sedation or general anesthesia, depending on anesthesia department's preference. ATTENTION RNS IN THE PRE-SURGICAL AREA: I have not ordered any pre-surgical prophylactic antibiotics for this patient. If the pharmacy department sends any pre- surgical prophylactic antibiotics to the pharmacy department to the pre-surgical area for this patient, please cancel that order and return the medication to the pharmacy department and make sure that the patient's account is credited appropriately. I have discussed the risks, benefits and alternative therapies for the above-mentioned procedure and for both sedation/analgesia as well as necessary blood product administration, if indicated, as they pertain to this patient. The patient has indicated his or her understanding and acceptance of the risks and procedures discussed. MMODL / IJN: [id number] /
[2019-07-23 08:18] VITALS: RESP 16; TEMP 97.7
[2019-07-23 09:03] LABS: Glucose,Whole Blood 117 mg/dL (75-99)
[2019-07-23 10:34] VITALS: BP 119/88; PULSE 76
--- NOTE | 2019-07-23 23:20 | OP ---
OPERATIVE REPORT PREOP DIAGNOSIS: Chronic bilateral serous otitis media. POSTOP DIAGNOSIS: Chronic bilateral serous otitis media. ANESTHESIA: General. OPERATIVE PROCEDURE: Bilateral myringotomy with insertion of Activent Jazmin bobbin type ventilation tubes. SURGEON: Dr. Urias. COMPLICATIONS: None. PROCEDURE IN DETAIL: The patient was placed on the Operating table in the supine position after uneventful induction and IV sedation, satisfactory general anesthesia was obtained. Next, the operating microscope was brought into position over the patient's right ear where after insertion of a #3 aural speculum, the external canal was cleansed of all wax and debris. The myringotomy knife was used to make an incision in the anterior inferior quadrant of the right tympanic membrane. The middle ear space was suctioned free of all fluid and a 1.1 mm Jazmin bobbin ventilation tube was inserted without any difficulty. Attention was then directed to the left ear where the same procedure was carried out using the operating microscope, #3 aural speculum, the external auditory canal was cleansed of all wax and debris. The myringotomy knife was used to make an incision in the anterior inferior quadrant of the left tympanic membrane and the middle ear space was suctioned free of all fluid. A 1.1 mm Jazmin bobbin ventilation tube was inserted without any difficulty. At this point, the procedure was terminated. There were no intraoperative complications. The patient tolerated the procedure well and was returned to the Recovery Room in satisfactory condition. MMODL / IJN: [id number] /
== END ==
LOC: OR 07:51
PROVIDERS: ATTEND Otolaryngology
DX: H65.23 Chronic serous otitis media, bilateral (principal); J43.9 Emphysema, unspecified; K21.9 Gastro-esophageal reflux disease without esophagitis; F17.200 Nicotine dependence, unspecified, uncomplicated; Z88.8 Allergy status to other drugs, medicaments and biological substances; Z79.899 Other long term (current) drug therapy
CPT/HCPCS: 69436; J2250; J1100; J3010; J1885; J2704

== ENCOUNTER → 2020-09-24 | Outpatient (CLI) | payer BC ==
--- NOTE | 2020-09-24 08:12 | MR ---
EXAMINATION TYPE: MR shoulder RT wo con DATE OF EXAM: 09/24/2020 COMPARISON: None. HISTORY: Rt shoulder pain TECHNIQUE: Multiplanar, multisequence imaging of the right shoulder is performed without contrast. FINDINGS: Rotator Cuff: Near-complete tear of the distal supraspinatus tendon and articular surface with a few posterior fibers remaining present. Tear measures 1.6 cm transversely sagittal image 24. Infraspinatu s tendon intact with distal increased signal. Subscapularis tendon intact. Mild to moderate generaliz ed atrophy of the teres minor muscle. Rotator cuff muscle bulk otherwise preserved. Acromioclavicular Joint: Moderate to severe narrowing. No significant spurring. Underlying fat plane maintained. Distal acromion morphology unremarkable. Glenohumeral Joint: Mild to moderate narrowing. No significant spurring Labrum: The labrum appears grossly intact given limitation of non-arthrogram study. Biceps Tendon: The long head of biceps is in normal location within bicipital groove. Bone marrow signal: Subchondral cystic change superior lateral humeral head. Other: No additional significant abnormality is appreciated. IMPRESSION: 1. Significant near full-thickness retracted tear of the supraspinatus tendon. Tendinosis distal infr aspinatus tendon. Mild to moderate Teres minor muscular atrophy.
== END | disposition home or self-care (01) ==
LOC: RADMRIMAIN 06:53
PROVIDERS: ATTEND Family Medicine
DX: M75.111 Incomplete rotator cuff tear or rupture of right shoulder, not specified as traumatic (principal); M67.813 Other specified disorders of tendon, right shoulder; M62.511 Muscle wasting and atrophy, not elsewhere classified, right shoulder

== ENCOUNTER → 2020-09-24 | Outpatient (CLI) | payer BC ==
--- NOTE | 2020-09-25 05:18 | MR ---
EXAMINATION TYPE: MR pancreas wo con DATE OF EXAM: 09/24/2020 COMPARISON: HISTORY: 1 year F/U of pancreatic cyst Multiplanar multiecho imaging of the abdomen was performed without contrast. FINDINGS: There is a 5 x 3 mm cyst in the pancreatic head that is on the left side of the pancreatic duct. This appears sharply marginated and bilobed. Appearance is not significantly different than old exam. The pancreatic duct appears normal. The remainder of the pancreas appears normal. Liver shows no focal d efect. Gallbladder appears normal. Kidneys have normal size and contour. There is no hydronephrosis. There is no adrenal mass. There is no evidence of a bowel obstruction. There is no evidence of ascites. There is no pleural eff usion. Spleen appears normal. IMPRESSION: Small cyst in the pancreatic head not significantly different than exam 2 years ago and therefore jeronimo ign.
== END | disposition home or self-care (01) ==
LOC: RADMRIMAIN 06:51
PROVIDERS: ATTEND Nurse Practitioner Family
DX: K86.2 Cyst of pancreas (principal)
CPT/HCPCS: 74181

== ENCOUNTER 2020-11-14 06:03 | Day surgery (SDC) | payer BC ==
[2020-11-12 14:54] VITALS: BMI 26.5
--- NOTE | 2020-11-13 09:09 | HP ---
HISTORY AND PHYSICAL CHIEF COMPLAINT: Right shoulder pain. 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 It has worsened recently. He is having pain with overhead use and at night. He notes limited motion. He has been taking pain medications and in addition tried therapy without any real relief. He notes the pain bothers him daily. PAST MEDICAL HISTORY: Significant for depression. CURRENT MEDICATIONS: Aspirin and [place]. ALLERGIES: He has allergies to STEROIDS. FAMILY HISTORY: Significant for heart disease and cancer. SOCIAL HISTORY: Significant for previous tobacco use in addition to social alcohol use. REVIEW OF SYSTEMS: Sixteen-point review of systems is otherwise reviewed and is noncontributory. PHYSICAL EXAMINATION: On examination, the patient is approximately 5 feet 10 inches, 190 pounds of mesomorphic habitus. HEENT exam is nonfocal. Neck is supple. On examination, the right shoulder is tender about the anterior subacromial space. Active range of motion forward elevation 80 degrees, external rotation with arm at side 35 degrees, internal rotation to L3. Passively I am able to forward elevate him to 150 degrees. Motor strength 4/5 for abduction and external rotation with the arm at the side. Impingement test, Neer tests, and Speed test are positive. His distal neurovascular exam appears intact in the right upper extremity. MRI report of the right shoulder 09/24/2020 shows evidence of a supraspinatus tear without significant retraction. IMPRESSION: Right shoulder impingement with symptomatic rotator cuff tear. RECOMMENDATIONS: I talked to the patient at length regarding his condition along with treatment options. At this point, he is quite symptomatic and limited despite previous conservative measures. After thorough discussion, he opts to proceed with surgery. We will plan to proceed with arthroscopic evaluation with probable subacromial decompression in addition to rotator cuff repair and possible biceps tenotomy. We will likely perform that as an outpatient procedure. Risks and benefits were discussed at length in layman's terms. MMODL / IJN: [id number] /
[~2020-11-14 06:03] MED LIST changes: -DEXAMETHASONE SOD PHOSPHATE 10 MG/ML 1 ML VIAL IV ONE; +DEXAMETHASONE SOD PHOSPHATE 4 MG/ML 1 ML VIAL IV ONE; -HYDROcodone/APAP 7.5-325MG 1 EACH TAB PO ONE; -KETOROLAC 30 MG/ML 1 ML VIAL IVP ONE; -LIDOCAINE 1% (10MG/ML) FOR IV START INTRADERMA PRN; -MIDAZOLAM 2 MG/2 ML VIAL ONE; -OFLOXACIN 0.3% OTIC DROPS 5 ML BTL BOTH EARS ONE; +ONDANSETRON 4 MG/2 ML VIAL IVP ONE; -PROPOFOL 10 MG/ML 20 ML VIAL IV ONE; -Pre Op ABX Message 1 EACH MISC MISCELLANE ONE; +SCOPOLAMINE 1.5MG/72HR PATCH TRANSDERM ONE; -fentaNYL (PF) 50 MCG/ML 2 ML AMP IV PRN; -fentaNYL (PF) 50 MCG/ML 2 ML AMP ONE
[2020-11-14 06:37] VITALS: RESP 16
[2020-11-14 06:44] LABS: Glucose,Whole Blood 101 mg/dL (75-99)
[2020-11-14] MEDS ORDERED: HYDROmorphone 0.5 MG/0.5 ML SYRINGE IVP PRN (07:00)
[2020-11-14] MEDS ORDERED: fentaNYL (PF) 50 MCG/ML 2 ML AMP IVP ONE (07:07)
[2020-11-14] MEDS ORDERED: PROPOFOL 10 MG/ML 20 ML VIAL IV ONE (07:39)
[2020-11-14] MEDS ORDERED: fentaNYL (PF) 50 MCG/ML 2 ML AMP ONE (07:39)
[2020-11-14] MEDS ORDERED: LIDOCAINE 1% INJ 10MG/ML (20 ML MDV) ONE (07:39)
[2020-11-14] MEDS ORDERED: ePHEDrine SULFATE/0.9% NACL/PF 50 MG/5 ML SYRINGE IV ONE (07:39)
[2020-11-14] MEDS ORDERED: SUCCINYLCHOLINE CHLORIDE 100 MG/5 ML SYR IV ONE (07:39)
[2020-11-14] MEDS ORDERED: DEXAMETHASONE SOD PHOSPHATE 4 MG/ML 1 ML VIAL ONE (07:39)
[2020-11-14] MEDS ORDERED: ROPIVACAINE 5 MG/ML 30 ML VIAL ONE (07:39)
[2020-11-14] MEDS ORDERED: PHENYLEPHRINE-0.9% NACL SYG 1,000 MCG/10 ML SYRINGE ONE (07:39)
[2020-11-14] MEDS ORDERED: EPINEPHrine (PF) 1 ML in SODIUM CHLORIDE 0.9% IRRIGATIO 3,000 ML IRRIGATION ONE ×8 (07:44)
--- NOTE | 2020-11-14 08:04 | P.ANPRN ---
Procedure Note - Anesthesia - Nerve Block Performed Right Interscalene Single Time Out Performed: Yes Date of Procedure: 11/14/20 Procedure Start Time: :06 Procedure Stop Time: 07:12 Location of Patient: PreOp Indication: Requested by Surgeon Specifically requested for management of pain by DrNing: Bassem Sosa Sedation Type: Sedate with meaningful contact maintained Preparation: Sterile Prep Position: Supine Needle Types: Pajunk Needle Gauge: 21 Ultrasound used to visualize needle placement: Yes Ultrasound used to observe medication spread: Yes Injectate: 0.5% Ropivacaine (see comment for volume) (25 ml plus Dexamethason 4 mg) Blood Aspirated: No Pain Paresthesia on Injection Noted: No Resistance on Injection: Normal Image Stored and Saved: Yes Events: Uneventful and Well Tolerated
[2020-11-14 09:17] VITALS: TEMP 96.8
--- NOTE | 2020-11-14 09:17 | P.OP ---
Date of Procedure: 11/14/20 Preoperative Diagnosis: Symptomatic right rotator cuff tear Postoperative Diagnosis: Same in addition to high-grade partial-thickness tear intra-articular portion long head of the biceps, acromioclavicular arthritis/subacromial impingement Procedure(s) Performed: Right shoulder arthroscopic subacromial decompression/biceps tenotomy/rotator cuff repair/distal clavicular resection Implants: Arthrex 4.75 mm swivel lock anchor 2, 5.5 mm swivel lock anchor 2 Anesthesia: ROWDYA, regional Surgeon: Bassem Sosa [employer] Operations Agent #1: Jose Enrique Guzmán Estimated Blood Loss (ml): 10 Pathology: none sent Condition: stable Disposition: PACU Indications for Procedure: The patient's 60-year-old male who presents with persistent/progressive right shoulder pain despite conservative measures. A discussion of the risks and benefits of operative intervention versus continued conservative measures was made with patient. He opted to proceed with surgery. Operative risks to include infection, neurovascular injury, development of blood clots, possible tendon rerupture, possible postoperative stiffness and need for subsequent procedures was discussed. Informed consent was obtained. Operative Findings: As below Description of Procedure: The patient was brought to the operating room, and after induction of general anesthesia was placed in a beachchair position. A preoperative interscalene block was placed for postoperative analgesia. I examined the right shoulder. There was no gross block to passive motion or gross glenohumeral instability. The right upper extremity was prepped and draped in normal fashion. The bony outlines the acromion, distal clavicle, and coracoid process were outlined with a skin marker. The glenohumeral joint was inflated with 50 mL of saline utilizing a spinal needle from posterior approach. A posterior portal was made through a 5 mm skin incision 1 cm medial and inferior to the posterior lateral border time. A blunt trocar was used to easily into the joint. Diagnostic arthroscopy was performed. An anterior portal was made just lateral to the coracoid process entering the joint above the subscapularis tendon. The subscapularis tendon appeared to be intact. Anterior labrum was intact. The inferior recess was inspected. The posterior labrum was intact. There was a high-grade partial-thickness tear of the long head of the biceps involving interarticular portion. It was elected to proceed with release at this point. This was released from the superior labrum with electrocautery and was allowed to retract to the bicipital groove. On inspection the rotator cuff, a full- thickness tear involving the supraspinatus was noted with minimal retraction. The arthroscope was placed into the subacromial space. A lateral portal was mad e 2 centimeters inferior to the anterior lateral border of the acromion. The rotator cuff was then easily brought back to the greater tuberosity. The soft tissue on the undersurface of the acromion was debrided with a motorized shaver and electrocautery clearly defining the anterior medial and lateral borders as well as the distal clavicle. An anterior inferior acromioplasty was performed with a motorized william starting anterolateral, then extending this posteriorly, then extending this medially. I converted to a flat acromion and this was verified in the posterior and lateral viewing portals. There appeared to be impingement from the distal clavicle therefore the distal 4 mm was resected with a motorized bur. The greater tuberosity was lightly decorticating with a shaver down to a bleeding bony surface. An accessory superior lateral portals made just off the lateral edge of the acromion for anchor placement. 2 anchors were then placed just off the articular surface with the appropriate starting awl. 4.75 mm anchors preloaded with #2 fiber tape were placed. Good purchase was obtained. These fiber tapes were then passed the rotator cuff with a scorpion suture passer. A lateral row was created crisscrossing these tapes. 5.5 mm swivel lock anchors x2 were placed laterally. Good purchase was obtained. Final arthroscopic view showed adequate compression at the footprint. The arthroscope was then removed. The portals were closed with simple 3-0 nylon sutures. A sterile dressing was applied in addition to a sling. The patient was then awoken from general anesthesia and transferred to recovery room in good condition. Blood loss was estimated at 10 mL. No complications were incurred. Sponge and needle counts were correct in the case. Jose Enrique SANCHEZ assisted and the major components of the case to include arm positioning, anchor placement, and rotator cuff repair.
[2020-11-14 09:23] LABS: Glucose,Whole Blood 160 mg/dL (75-99)
[2020-11-14 10:15] VITALS: BP 112/76; PULSE 67
== END 2020-11-14 10:29 | disposition home or self-care (01) ==
LOC: OR 06:03
PROVIDERS: ATTEND Orthopaedic Surgery
DX: M75.111 Incomplete rotator cuff tear or rupture of right shoulder, not specified as traumatic (principal); I25.10 Atherosclerotic heart disease of native coronary artery without angina pectoris; J44.9 Chronic obstructive pulmonary disease, unspecified; F17.200 Nicotine dependence, unspecified, uncomplicated; E11.9 Type 2 diabetes mellitus without complications; M06.9 Rheumatoid arthritis, unspecified; K21.9 Gastro-esophageal reflux disease without esophagitis; Z79.51 Long term (current) use of inhaled steroids; Z79.82 Long term (current) use of aspirin; Z82.49 Family history of ischemic heart disease and other diseases of the circulatory system; F32.9 Major depressive disorder, single episode, unspecified; Z88.8 Allergy status to other drugs, medicaments and biological substances
CPT/HCPCS: 29824; 29826; 29827; 29828; 64415; C1713 ×2; C1894; J2250; J1100; J0690; J2405; J0171; J2001; J3010; J2795; J2370; J0330; J2704

== ENCOUNTER → 2021-04-24 | Outpatient (CLI) | payer BC ==
[2021-04-24 10:35] LABS: African American GFR (CKD) >90 (>60 ml/min/1.73 sqM); Blood Urea Nitrogen 30 mg/dL (9-20); Non-African American GFR(CKD) >90 (>60 ml/min/1.73 sqM)
--- NOTE | 2021-04-24 14:28 | CT ---
EXAMINATION TYPE: CT abdomen pelvis wo/w con DATE OF EXAM: 04/24/2021 COMPARISON: HISTORY: Pilonidal cyst, abnormal weight loss of 30 lbs over 30 days, hematuria CT DLP: 943.10 mGycm Automated exposure control for dose reduction was used. CONTRAST: CT scan of the abdomen pelvis is performed without and with IV Contrast, patient injected with 100 ml mL of Isovue 300. FINDINGS- LUNG BASES-hyperinflation suggests COPD and there is subsegmental changes at the lung bases.. LIVER/GB- No gross abnormality is appreciated. PANCREAS- No gross abnormality is seen. SPLEEN- No gross abnormality is seen. ADRENALS- No gross abnormality is seen. KIDNEYS/BLADDER- no hydronephrosis nephrolithiasis or renal mass. BOWEL- no bowel dilatation. Normal appendix. LYMPH NODES- No greater than 1cm abdominal or pelvic lymph nodes areappreciated. OSSEOUS STRUCTURES-hypertrophic and degenerative changes spine.. OTHER- aorta of normal caliber. Bladder homogeneous. Bilateral fat-containing inguinal hernias. IMPRESSION- 1. No hydronephrosis or nephrolithiasis. No sizable renal mass.
== END | disposition home or self-care (01) ==
LOC: RADCTMAIN 09:32
PROVIDERS: ATTEND Family Medicine
DX: R31.9 Hematuria, unspecified (principal); R63.4 Abnormal weight loss
CPT/HCPCS: 82565; 84520; 74178; 36415; Q9967

== ENCOUNTER 2021-05-06 15:23 | Emergency (ER) | payer BC ==
[2021-05-06 16:27] VITALS: TEMP 99
[2021-05-06] MEDS ORDERED: KETOROLAC 15 MG/ML 1 ML VIAL IM STA (17:43)
[2021-05-06] MEDS ORDERED: HYDROmorphone 1 MG/ML 1 ML SYRINGE IM STA ×2 (17:43→19:27)
[2021-05-06] MEDS ORDERED: DIAZEPAM 5 MG/ML 2 ML INJ IM ONE (17:43)
--- NOTE | 2021-05-06 18:24 | CT ---
EXAMINATION TYPE: CT lumbar spine wo con DATE OF EXAM: 05/06/2021 COMPARISON: 04/24/2021 HISTORY: Back pain, Rt leg weakness TECHNIQUE: CT scan of the lumbar spine performed without contrast CT DLP: 920.4 mGycm Automated exposure control for dose reduction was used. FINDINGS: There is mild generalized osteopenia. There is mild straightening of the lumbar curvature. The vertebral body heights are within normal fischer it. Posterior elements are acutely intact. No acute fracture or dislocation seen. No bony spinal canal stenosis. Mild multilevel narrowing of the intervertebral spaces is seen. This is most apparent at T12-L1 and L 3-4. No significant bony narrowing of the neural foramina. There is mild facet joint arthropathy cardoso ges L5-S1 and moderate at T12-L1. Mild ventral bony spurring is seen in the lower thoracic and upper lumbar spine. Groundglass like opacities are seen in the lung bases greater on the right not significantly changed compared to most recent CT of the abdomen and pelvis. Minimal atherosclerotic calcifications are seen in the infrarenal abdominal aorta. IMPRESSION: 1. NO ACUTE FRACTURE OR DISLOCATION. 2. MILD DEGENERATIVE CHANGES OF THE SPINE-RECOMMEND DEDICATED NONCONTRAST ENHANCED MRI OF THE LUMBAR SPINE. 3. NONSPECIFIC GROUNDGLASS LIKE OPACITIES IN THE LUNG BASES MAY BE ON THE BASIS OF ATELECTASIS, INFEC TION /INFLAMMATION/EDEMA CANNOT BE ENTIRELY EXCLUDED, NO SIGNIFICANT CHANGE SINCE 04/24/2021. CORRELA TE CLINICALLY.
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
[2021-05-06 20:14] VITALS: BP 151/90; PULSE 73; RESP 16
== END 2021-05-06 20:13 | disposition home or self-care (01) ==
LOC: EC 15:23
DX: M54.50 Low back pain, unspecified (principal); R20.0 Anesthesia of skin; K21.9 Gastro-esophageal reflux disease without esophagitis; E78.5 Hyperlipidemia, unspecified; M19.90 Unspecified osteoarthritis, unspecified site; J44.9 Chronic obstructive pulmonary disease, unspecified; M06.9 Rheumatoid arthritis, unspecified; F17.200 Nicotine dependence, unspecified, uncomplicated; Z72.89 Other problems related to lifestyle
CPT/HCPCS: 72131; 99284; 96372 ×4; J3360; J1170; J1885

== ENCOUNTER → 2021-09-14 | Outpatient (CLI) | payer BC ==
[2021-09-14 08:32] LABS: African American GFR (CKD) >90 (>60 ml/min/1.73 sqM); Blood Urea Nitrogen 20 mg/dL (9-20); Non-African American GFR(CKD) 80 (>60 ml/min/1.73 sqM)
--- NOTE | 2021-09-14 12:14 | CT ---
EXAMINATION TYPE: CT urogram wo/w con DATE OF EXAM: 09/14/2021 INDICATION: Hematuria. CT DLP: 2313.9 mGy.cm Automated Exposure Control for Dose Reduction was Utilized. TECHNIQUE AND CONTRAST: CT scan of the abdomen and pelvis is performed without and with IV Contrast, as per CT urogram protoc ol. The patient was injected with 100ml mL of Isovue 300. 3-D reconstruction images were generated on an independent workstation and reviewed. COMPARISON: CT dated 04/24/2021 FINDINGS: No radiodense renal calculi. No hydroureter or hydronephrosis. No definite renal lesion identified. N o filling defect is seen within the renal collecting system or the opacified portion of the ureters. No gross ureteric lesion. Slightly thickened urinary bladder wall, nonspecific. Grossly unremarkable urinary bladder otherwise. Prominent prostate, please correlate with PSA level. Grossly unremarkable seminal vesicles. Stable millimetric hypodensity at the anterior aspect of the left hepatic lobe likely representing a hepatic cyst. Otherwise unremarkable liver, gallbladder, spleen, pancreas and adrenals. Minimal arter ial atherosclerotic calcifications. Unremarkable nondistended stomach, duodenum and small bowel. Feca l loading of the colon. No gross colonic mass. Normal appendix. 8mm partially calcified lymph node/structure along the anterior aspect of the right external iliac ve ssels. No pathologically enlarged lymph nodes identified. Bilateral fat-containing inguinal hernias, larger on the left side. Fat-containing umbilical hernia. No sizable ascites. Bilateral basal subsegm ental pulmonary atelectasis and dependent densities. No gross aggressive bone lesion. Small bilateral scrotal hydrocele. IMPRESSION: No radiodense urinary calculi. No hydroureter or hydronephrosis. No gross urinary lesion identified. Incidental findings as detailed above.
== END | disposition home or self-care (01) ==
LOC: RADCTMAIN 07:49
PROVIDERS: ATTEND Family Medicine
DX: R31.9 Hematuria, unspecified (principal)
CPT/HCPCS: 82565; 84520; 74178; 36415; 74400; Q9967

== ENCOUNTER → 2022-05-01 | Outpatient (CLI) | payer MEDICAID ==
--- NOTE | 2022-05-01 21:30 | MR ---
EXAMINATION TYPE: MR lumbar spine wo con DATE OF EXAM: 05/01/2022 1:46 PM COMPARISON: CT lumbar spine 05/06/2021. CLINICAL INDICATION:Male, 62 years old with history of M47.26 SPONDYLOSIS WITH RADICULOPATHY, TECHNIQUE: Multi planar, multi sequence imaging was performed utilizing: T1-weighted, T2-weighted, a nd turbo inversion recovery imaging of the lumbar spine. IV Contrast: None. FINDINGS: Alignment: The lumbar vertebral bodies have preserved heights and alignment. Cord: The conus medullaris and the distal spinal cord appear unremarkable with regards to their signa l intensity and morphology. Bones/Discs: No evidence of bony edema on inversion recovery sequences. Multilevel degenerative disc disease is noted and most pronounced at the T12, L1 and L2. Scattered disc desiccation is mild. T12-L1: Disc bulge with facet joint arthropathy without significant spinal canal or neural foraminal stenosis. L1-L2: Disc bulge and facet joint arthropathy without significant spinal canal or neural foraminal st enosis. L2-L3: Right central disc protrusion with mild spinal canal stenosis. Facet joint arthropathy also pr esent with mild neural foraminal stenosis. L3-L4: Disc bulge and facet joint arthropathy with mild spinal canal and mild bilateral neural forami nal stenosis. L4-L5: No evidence of significant spinal canal stenosis or neural foraminal stenosis. Facet joint ar thropathy is present. L5-S1: No evidence of significant spinal canal stenosis. Facet joint arthropathy with mild bilateral neural foraminal stenosis. Other findings: None. IMPRESSION: 1. No definitive evidence of significant spinal canal stenosis. 2. L2-L3 right central disc herniation with mild spinal canal stenosis. 3. Multilevel disc degeneration changes with scattered mild neural foraminal stenosis.
== END | disposition home or self-care (01) ==
LOC: RADMRIMAIN 13:07
PROVIDERS: ATTEND Nurse Practitioner Family
DX: M47.26 Other spondylosis with radiculopathy, lumbar region (principal); M51.16 Intervertebral disc disorders with radiculopathy, lumbar region; M48.061 Spinal stenosis, lumbar region without neurogenic claudication; M99.73 Connective tissue and disc stenosis of intervertebral foramina of lumbar region
CPT/HCPCS: 72148

== ENCOUNTER → 2022-08-20 | Outpatient (CLI) | payer MEDICAID ==
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
== END | disposition home or self-care (01) ==
LOC: RADCTMAIN 07:59
PROVIDERS: ATTEND Orthopaedic Surgery
DX: M50.122 Cervical disc disorder at C5-C6 level with radiculopathy (principal); G89.29 Other chronic pain
CPT/HCPCS: 72125

== ENCOUNTER → 2022-08-31 | Outpatient (CLI) | payer MEDICAID ==
--- NOTE | 2022-09-01 11:15 | MR ---
EXAMINATION TYPE: MR cervical spine wo con DATE OF EXAM: 08/31/2022 INDICATION: Patient age:Male; 62 years old; Reason for study: M54.12 radiculopathy;. Neck/back pain, numbness in arms and fingers, headaches COMPARISON: CT 08/20/2022. TECHNIQUE: Multi planar, multi sequence imaging was performed utilizing: T1-weighted, T2-weighted, an d turbo inversion recovery imaging of the cervical spine. IV Contrast: None FINDINGS: Alignment: The cervical vertebral bodies have preserved heights. Alignment is within normal limits gi hernan patient positioning. Bones: Bone signal is within normal limits. No abnormal bone marrow edema on inversion recovery seque nces. Cord: The spinal cord is unremarkable with regards to their signal intensity and morphology. Discs: Intervertebral disc signal is maintained. C2-C3: No significant disc pathology. The spinal canal is patent. Bilateral facet and uncovertebral joint arthropathy are present with mild left neural foraminal stenosis. The right neural foramen is p atent. C3-C4: No significant disc pathology. The spinal canal is patent. Bilateral facet and uncovertebral joint arthropathy are present with mild bilateral neural foraminal stenosis. C4-C5: No significant disc pathology. The spinal canal is patent. Bilateral facet and uncovertebral joint arthropathy are present with mild left neural foraminal stenosis. The right neural foramen is p atent. C5-C6: A disc osteophyte complex is present with mild spinal canal stenosis. Bilateral facet and unc overtebral joint arthropathy are present with moderate left and mild to moderate right neural foramin al stenosis. C6-C7: A disc osteophyte complex is present which minimally narrows the ventral subarachnoid space. No neural foraminal stenosis. C7-T1: No significant disc pathology. The spinal canal is patent. No neural foraminal stenosis. Other: None. IMPRESSION: 1. No evidence for disc herniation or significant spinal canal stenosis. 2. Multilevel disc degeneration with associated osteoarthritic changes worse at C5-C6 with mild spina l canal stenosis and moderate left and [id number] right neural foraminal stenosis.
== END | disposition home or self-care (01) ==
LOC: RADMRIMAIN 10:04
PROVIDERS: ATTEND Orthopaedic Surgery
DX: M50.122 Cervical disc disorder at C5-C6 level with radiculopathy (principal); M99.71 Connective tissue and disc stenosis of intervertebral foramina of cervical region; M47.22 Other spondylosis with radiculopathy, cervical region
CPT/HCPCS: 72141

== ENCOUNTER → 2022-10-27 | Outpatient (CLI) | payer MEDICAID ==
[2022-10-27 08:26] VITALS: BP 136/94; PULSE 70; RESP 18
--- NOTE | 2022-10-27 13:27 | P.PAINPG ---
PQRS Measure Charge Sheet Comment: A 62 yr old male with a history of severe and chronic LBP secondary to lumbar DDD and spondylosis with facet arthropathy without myelopathy presents today for evaluation s/p STAR L2-L3 #1. Pt states he experienced 75 % pain relief x 10 days s/p procedure. Pain level is provoked at 7 /10 in intensity, constant, localized in the lumbar spine, stabbing in character w shooting towards his feet. Pain is provoked by walking/ standing for periods of 15 min or more. Pain is alleviated with PT years ago, physician guided home exercises daily x 3 yrs w his , heat, medications, topical, repositioning and rest. Interventional pain procedures completed include STAR L2-L3 x1 Patient is currently on [place], Neurontin Patient denies any side effects of the medication(s), denies excessive drowsiness or sleepiness, denies suicidal ideation and reports that the current pain medication is helping to control the pain and improve activities of daily living. Patient denies any motor or sensory deficits. Patient denies any fever or night sweats, denies any change in the bowel movements or urination. Physical Examination: -Constitutional: Cooperative. Not in acute distress . - Neurologic: Cranial nerve II to XII intact. No focal neurological deficits. - Psychatric: Alert & oriented x 3. Matching mood & appropriate affect. Judgment and insight intact. - Musculoskeletal: Cervical spine: Muscle bulk/ tone/ strength in the bilateral upper extremities normal Vertebral body tenderness to palpation over Spurling test positive Distraction test positive Facet loading test positive TTP Thoracic spine Muscle bulk / tone/ strength in the bilateral paraspinal muscles normal Vertebral body tender to palpation over Facet loading test positive TTP Lumbar spine: Motor bulk/ tone/ strength lower extremities , thigh and legs : 5/5 Deep tendon reflexes : Normal Knee Jerk. Normal Ankle Jerk . Vertebral body tenderness to palpation over Ibrahim Test positive Lumbar Facet Loading Test positive over BL L4-L5, L5-S1 Straight Leg Raise: positive at 30 degrees right side/ left side Gaenslen's Test positive Sacral spine : Severe tenderness over the Sacroiliac joint: right side / left side Range of motion: Flexion of the lumbar spine <60 degrees Range of motion: Extension of the lumbar spine <20 degrees Gaenslen's Test positive right side / left side Bryan test: positive right side / left side Thigh Thrust Test positive right side / left side Sacral Thrust Test positive right side / left side Assessment and plan: Chronic LBP secondary to lumbar DDD, spondylosis with facet arthropathy without myelopathy Recommendation of BL MBB L4-L5, L5-S1 #1. Risks, benefits of procedure discussed and pt verbalized understanding. Admits to anticoagulant use or medical history of diabetes. Protocol for discontinuation/ continuation of medications pari procedure discussed. Minimal anesthesia provided, if clinically indicated, consisting of Versed and Fentanyl. All questions answered. I have spent less than 30 minutes on patient care today. Dr Somers was available by phone for the evaluation of this patient. The time was used to review the medical records including relevant urine studies and Prescription history (MAPs), review of the available imaging, evaluation and examination of the patient, coordination of care with the medical staff and if applicable referring physicians, as well as creation of the medical record PQRS Narrative: Smoking Status Current some day smoker Hx Alcohol Use (MH) Yes Home Medications: Ambulatory Orders HYDROcodone/APAP 7.5-325MG [[place] 7.5-325] 1 tab PO TID PRN 05/03/16 Multivitamins, Thera [Multivitamin] 1 tab PO DAILY 05/03/16 Albuterol Inhaler [Ventolin Hfa Inhaler] 1 - 2 puff INHALATION Q6H PRN 08/17/18 Atorvastatin [Lipitor] 40 mg PO HS 08/17/18 Nitroglycerin Sl Tabs [Nitrostat] 0.4 mg SUBLINGUAL Q5M PRN 07/20/19 Pantoprazole [Protonix] 40 mg PO QAM 07/20/19 Zolpidem [Ambien] 10 mg PO HS PRN 11/12/20 Gabapentin 300 mg PO TID 06/17/22 Cyclobenzaprine HCl 5 mg PO TID PRN 07/07/22 Ibuprofen 600 mg PO Q6H PRN 07/07/22 metFORMIN HCL [Glucophage] 500 mg PO Q12H 07/07/22 Controlled Substance Measures - Controlled Substance Measures Is patient prescribed a controlled substance at discharge?: No
== END ==
LOC: PNWHC3 07:51
PROVIDERS: ATTEND Specialist
DX: M47.817 Spondylosis without myelopathy or radiculopathy, lumbosacral region (principal); G89.29 Other chronic pain; F17.200 Nicotine dependence, unspecified, uncomplicated; M62.81 Muscle weakness (generalized); Z88.6 Allergy status to analgesic agent; Z88.8 Allergy status to other drugs, medicaments and biological substances; M47.27 Other spondylosis with radiculopathy, lumbosacral region; M48.02 Spinal stenosis, cervical region; M54.12 Radiculopathy, cervical region
CPT/HCPCS: 99211

== ENCOUNTER → 2022-11-19 | Day surgery (SDC) | payer MEDICAID ==
[~2022-11-19] MED LIST changes: -DEXAMETHASONE SOD PHOSPHATE 4 MG/ML 1 ML VIAL IV ONE; +IV FLUID CONTINUATION 800 ML IV ONE; +LACTATED RINGERS 1,000 ML IV ONE; +LIDOCAINE 1% (10MG/ML) FOR IV START INTRADERMA PRN; -MIDAZOLAM 2 MG/2 ML VIAL IV PRN; +MIDAZOLAM 2 MG/2 ML VIAL ONE; -ONDANSETRON 4 MG/2 ML VIAL IVP ONE; -SCOPOLAMINE 1.5MG/72HR PATCH TRANSDERM ONE; +fentaNYL (PF) 50 MCG/ML 2 ML AMP ONE
[2022-11-19 13:07] VITALS: RESP 16; TEMP 97.4
[2022-11-19 13:10] LABS: Glucose,Whole Blood 98 mg/dL (70-110)
--- NOTE | 2022-11-19 13:26 | P.PCN ---
Date of Procedure: 11/19/22 Procedure(s) Performed: PREOPERATIVE DIAGNOSIS : 1- Lumbar spondylosis with Facet Arthropathy without myelopathy . 2- Lumber degenerative disc disease POSTOPERATIVE DIAGNOSIS: 1- Lumbar spondylosis with Facet Arthropathy without myelopathy . 2- Lumber degenerative disc disease PROCEDURE: Diagnostic bilateral L3 , L4 , and L5 medial branch block under fluoroscopy guidance(fluoroscopy images available in the radiology Department ) ( To target the facet joint between Bilateral L4-5 , and L5-S1 ) ANESTHESIA:, Monitored anesthesia care as per anesthesia department. EBL: Minimal COMPLICATION: None PROCEDURE INDICATION: Chronic low back pain secondary to Facet arthropathy unresponsive to conservative treatment. PROCEDURE DESCRIPTION: the patient was seen and identified in the preop holding area , risks and benefits and possible complications of the procedure and alternative were discussed with the patient, and the patient agreed to proceed with the procedure and signed the consent and vital signs monitored during the procedure and fluoroscopy was used to maximize the benefit and accuracy of the needle placement, and sedation was given to decrease patient anxiety, patient was taken to the procedure room and placed in prone position vital signs monitored in the back prepped with chlorhexidine X3 then under strict sterile technique using a right oblique fluoroscopy ,the junction of the transverse process and the superior articulating process of the right L3 , L4 , and L5 vertebra which corresponding to the fluoroscopy image of the eye of the Gasper dog on the block side for the medial branches and subsequently , after local infiltration of skin and subcu tissuies with Ropivacaine 0.5 % , one mL at each level ,then 22-gauge Quincke-type needles , 3 needle was used , each one of them placed at the junction of the base of the transverse process and the superior articular process at the appropriate level, and the needle was advanced until the periosteum contacted, needle placement confirmed with AP oblique and lateral view and after appropriate needle placement confirmed, and after negative aspiration for heme and CSF and there was no paresthesia 1-1/2 mL of Ropivacaine 0.5% mixed with 20 mg Depo-Medrol , then half mL injected at each level after negative aspiration the needle subsequently removed and the same procedure repeated for the left side at left side at L3 , L4 and L5 levels. At the end of the procedure and the needles removed and a bandage applied after the skin was cleaned the cleaning solution patient taken to recovery room in stable condition and monitors in the recovery room for 20-30 minutes and discharged home in stable condition after discharge criteria met and patient will follow up with the pain clinic in 2-4 weeks
--- NOTE | 2022-11-19 13:41 | FL ---
Fluoroscopy INDICATION: Pain FINDINGS: Fluoroscopy time: 3.2 seconds. Total dose area product (DAP) in uGy*m?, mGy*cm? (or similar): 0.61178 Images obtained: 5. IMPRESSIONS: 1. Documentation of fluoroscopy.
[2022-11-19 13:56] VITALS: BP 117/75; PULSE 70
== END ==
LOC: ORPAIN 12:30
PROVIDERS: ATTEND Specialist
DX: M47.817 Spondylosis without myelopathy or radiculopathy, lumbosacral region (principal); M51.36 Other intervertebral disc degeneration, lumbar region; E78.5 Hyperlipidemia, unspecified; J44.9 Chronic obstructive pulmonary disease, unspecified; Z87.891 Personal history of nicotine dependence; Z98.890 Other specified postprocedural states; Z79.899 Other long term (current) drug therapy
CPT/HCPCS: 64493; 64494 ×2; J2250; J3010

== ENCOUNTER → 2022-12-08 | Outpatient (CLI) | payer MEDICAID ==
[2022-12-08 08:52] VITALS: BP 125/86; PULSE 78; RESP 18; TEMP 98.2
--- NOTE | 2022-12-08 14:20 | P.PAINPG ---
PQRS Measure Charge Sheet Comment: A 62 yr old male with a history of severe and chronic LBP secondary to lumbar DDD and spondylosis with facet arthropathy without myelopathy presents today for evaluation s/p BL MBB L4-L5, L5-S1 #1. Pt states he experienced 60 % pain relief x hrs s/p procedure. Pain level is provoked at 7 /10 in intensity, constant, localized in the lumbar spine, stabbing in character w shooting towards his feet. Pain is provoked by walking/ standing for periods of 15 min or more. Pain is alleviated with PT years ago, physician guided home exercises daily x 3 yrs w his , heat, medications, topical, repositioning and rest. Oswestry axial pain score of . Interventional pain procedures completed include STAR L2-L3 x1, BL MBB L3-L5 x1 Patient is currently on [place], Neurontin Patient denies any side effects of the medication(s), denies excessive drowsiness or sleepiness, denies suicidal ideation and reports that the current pain medication is helping to control the pain and improve activities of daily living. Patient denies any motor or sensory deficits. Patient denies any fever or night sweats, denies any change in the bowel movements or urination. Physical Examination: -Constitutional: Cooperative. Not in acute distress . - Neurologic: Cranial nerve II to XII intact. No focal neurological deficits. - Psychatric: Alert & oriented x 3. Matching mood & appropriate affect. Judgment and insight intact. - Musculoskeletal: Cervical spine: Muscle bulk/ tone/ strength in the bilateral upper extremities normal Vertebral body tenderness to palpation over Spurling test positive Distraction test positive Facet loading test positive TTP Thoracic spine Muscle bulk / tone/ strength in the bilateral paraspinal muscles normal Vertebral body tender to palpation over Facet loading test positive TTP Lumbar spine: Motor bulk/ tone/ strength lower extremities , thigh and legs : 5/5 Deep tendon reflexes : Normal Knee Jerk. Normal Ankle Jerk . Vertebral body tenderness to palpation over Ibrahim Test positive Lumbar Facet Loading Test positive over BL L4-L5, L5-S1 Straight Leg Raise: positive at 30 degrees right side/ left side Gaenslen's Test positive Sacral spine : Severe tenderness over the Sacroiliac joint: right side / left side Range of motion: Flexion of the lumbar spine <60 degrees Range of motion: Extension of the lumbar spine <20 degrees Gaenslen's Test positive right side / left side Bryan test: positive right side / left side Thigh Thrust Test positive right side / left side Sacral Thrust Test positive right side / left side Assessment and plan: Chronic LBP secondary to lumbar DDD, spondylosis with facet arthropathy without myelopathy Recommendation of BL MBB L4-L5, L5-S1 #2. Risks, benefits of procedure discussed and pt verbalized understanding. Admits to anticoagulant use or medical history of diabetes. Protocol for discontinuation/ continuation of medications pari procedure discussed. Minimal anesthesia provided, if clinically indicated, consisting of Versed and Fentanyl. All questions answered. I have spent less than 30 minutes on patient care today. Dr Somers was available by phone for the evaluation of this patient. The time was used to review the medical records including relevant urine studies and Prescription history (MAPs), review of the available imaging, evaluation and examination of the patient, coordination of care with the medical staff and if applicable referring physicians, as well as creation of the medical record PQRS Narrative: Smoking Status Current some day smoker Hx Alcohol Use (MH) Yes Home Medications: Ambulatory Orders Multivitamins, Thera [Multivitamin] 1 tab PO DAILY 05/03/16 Albuterol Inhaler [Ventolin Hfa Inhaler] 1 - 2 puff INHALATION Q6H PRN 08/17/18 Atorvastatin [Lipitor] 40 mg PO HS 08/17/18 Nitroglycerin Sl Tabs [Nitrostat] 0.4 mg SUBLINGUAL Q5M PRN 07/20/19 Pantoprazole [Protonix] 40 mg PO QAM 07/20/19 Zolpidem [Ambien] 10 mg PO HS PRN 11/12/20 Gabapentin 300 mg PO TID 06/17/22 Ibuprofen 600 mg PO Q6H PRN 07/07/22 metFORMIN HCL [Glucophage] 500 mg PO Q12H 07/07/22 Aspirin [[place] Aspirin EC] 1 tab PO DAILY 11/19/22 Celecoxib [CeleBREX] 200 mg PO DAILY 12/08/22 Controlled Substance Measures - Controlled Substance Measures Is patient prescribed a controlled substance at discharge?: No
== END ==
LOC: PNWHC3 08:01
PROVIDERS: ATTEND Specialist
DX: M51.37 Other intervertebral disc degeneration, lumbosacral region (principal); M47.817 Spondylosis without myelopathy or radiculopathy, lumbosacral region; G89.29 Other chronic pain; F17.200 Nicotine dependence, unspecified, uncomplicated; Z88.8 Allergy status to other drugs, medicaments and biological substances; Z79.82 Long term (current) use of aspirin
CPT/HCPCS: 99211

== ENCOUNTER 2022-12-17 13:03 | Day surgery (SDC) | payer MEDICAID ==
[~2022-12-17 13:03] MED LIST changes: -IV FLUID CONTINUATION 800 ML IV ONE; -LACTATED RINGERS 1,000 ML IV ONE; -MIDAZOLAM 2 MG/2 ML VIAL ONE; -fentaNYL (PF) 50 MCG/ML 2 ML AMP ONE
[2022-12-17] MEDS ORDERED: fentaNYL (PF) 50 MCG/ML 2 ML AMP ONE (13:43)
[2022-12-17] MEDS ORDERED: MIDAZOLAM 2 MG/2 ML VIAL ONE (13:43)
[2022-12-17 13:46] VITALS: TEMP 97.3
[2022-12-17] MEDS ORDERED: ROPIVACAINE 5 MG/ML 20 ML AMPULE ONE (13:48)
[2022-12-17] MEDS ORDERED: methylPREDNISolone ACETATE 40 MG/ML 1 ML VIAL ONE (13:48)
[2022-12-17 13:52] LABS: Glucose,Whole Blood 118 mg/dL (70-110)
--- NOTE | 2022-12-17 13:58 | P.PCN ---
Date of Procedure: 12/17/22 Procedure(s) Performed: PREOPERATIVE DIAGNOSIS : 1- Lumbar spondylosis with Facet Arthropathy without myelopathy . 2- Lumber degenerative disc disease POSTOPERATIVE DIAGNOSIS: 1- Lumbar spondylosis with Facet Arthropathy without myelopathy . 2- Lumber degenerative disc disease PROCEDURE: Diagnostic bilateral L3 , L4 , and L5 medial branch block under fluoroscopy guidance(fluoroscopy images available in the radiology Department ) ( To target the facet joint between Bilateral L4-5 , and L5-S1 )#2nd ANESTHESIA:, Monitored anesthesia care as per anesthesia department. EBL: Minimal COMPLICATION: None PROCEDURE INDICATION: Chronic low back pain secondary to Facet arthropathy unresponsive to conservative treatment. PROCEDURE DESCRIPTION: the patient was seen and identified in the preop holding area , risks and benefits and possible complications of the procedure and alternative were discussed with the patient, and the patient agreed to proceed with the procedure and signed the consent and vital signs monitored during the procedure and fluoroscopy was used to maximize the benefit and accuracy of the needle placement, and sedation was given to decrease patient anxiety, patient was taken to the procedure room and placed in prone position vital signs monitored in the back prepped with chlorhexidine X3 then under strict sterile technique using a right oblique fluoroscopy ,the junction of the transverse process and the superior articulating process of the right L3 , L4 , and L5 vertebra which corresponding to the fluoroscopy image of the eye of the Gasper dog on the block side for the medial branches and subsequently , after local infiltration of skin and subcu tissuies with Ropivacaine 0.5 % , one mL at each level ,then 22-gauge Quincke-type needles , 3 needle was used , each one of them placed at the junction of the base of the transverse process and the superior articular process at the appropriate level, and the needle was advanced until the periosteum contacted, needle placement confirmed with AP oblique and lateral view and after appropriate needle placement confirmed, and after negative aspiration for heme and CSF and there was no paresthesia 1-1/2 mL of Ropivacaine 0.5% mixed with 20 mg Depo-Medrol , then half mL injected at each level after negative aspiration the needle subsequently removed and the same procedure repeated for the left side at left side at L3 , L4 and L5 levels. At the end of the procedure and the needles removed and a bandage applied after the skin was cleaned the cleaning solution patient taken to recovery room in stable condition and monitors in the recovery room for 20-30 minutes and discharged home in stable condition after discharge criteria met and patient will follow up with the pain clinic in 2-4 weeks
[2022-12-17] MEDS ORDERED: IV FLUID CONTINUATION 1,000 ML IV ONE (14:02)
[2022-12-17 14:18] VITALS: BP 114/82; PULSE 78; RESP 18
--- NOTE | 2022-12-17 17:18 | FL ---
Fluoroscopy History: Ralph Lumbar Facet Blk Ralph Lumbar Facet 11sec fluoro time 0.59286 DAP
== END 2022-12-17 14:34 | disposition home or self-care (01) ==
LOC: ORPAIN 13:03
PROVIDERS: ATTEND Specialist
DX: M51.36 Other intervertebral disc degeneration, lumbar region (principal); M47.816 Spondylosis without myelopathy or radiculopathy, lumbar region; I25.10 Atherosclerotic heart disease of native coronary artery without angina pectoris; I10 Essential (primary) hypertension; E78.5 Hyperlipidemia, unspecified; J44.9 Chronic obstructive pulmonary disease, unspecified; Z87.891 Personal history of nicotine dependence; K21.9 Gastro-esophageal reflux disease without esophagitis; Z79.899 Other long term (current) drug therapy
CPT/HCPCS: 64493; 64494 ×2; J2250; J1030; J3010; J2795

== ENCOUNTER → 2023-01-12 | Outpatient (CLI) | payer MEDICAID ==
[2023-01-12 08:28] VITALS: BP 125/80; PULSE 67; RESP 15; TEMP 97.2
--- NOTE | 2023-01-12 13:16 | P.PAINPG ---
PQRS Measure Charge Sheet Comment: A 62 yr old male with a history of severe and chronic LBP secondary to lumbar DDD and spondylosis with facet arthropathy without myelopathy presents today for evaluation s/p BL MBB L4-L5, L5-S1 #2. Pt states he experienced 90% pain relief x 24 hrs s/p procedure. Pain level is provoked at 7 /10 in intensity, constant, localized in the lumbar spine, stabbing in character w shooting towards his feet. Pain is provoked by walking/ standing for periods of 15 min or more. Pain is alleviated with PT years ago, physician guided home exercises daily x 3 yrs w his , heat, medications, topical, repositioning and rest. Oswestry axial pain score of 33. Interventional pain procedures completed include STAR L2-L3 x1, BL MBB L3-L5 x1 Patient is currently on [place], Neurontin, Icy-Hot Patient denies any side effects of the medication(s), denies excessive drowsiness or sleepiness, denies suicidal ideation and reports that the current pain medication is helping to control the pain and improve activities of daily living. Patient denies any motor or sensory deficits. Patient denies any fever or night sweats, denies any change in the bowel movements or urination. Physical Examination: -Constitutional: Cooperative. Not in acute distress . - Neurologic: Cranial nerve II to XII intact. No focal neurological d eficits. - Psychatric: Alert & oriented x 3. Matching mood & appropriate affect. Judgment and insight intact. - Musculoskeletal: Cervical spine: Muscle bulk/ tone/ strength in the bilateral upper extremities normal Vertebral body tenderness to palpation over Spurling test positive Distraction test positive Facet loading test positive TTP Thoracic spine Muscle bulk / tone/ strength in the bilateral paraspinal muscles normal Vertebral body tender to palpation over Facet loading test positive TTP Lumbar spine: Motor bulk/ tone/ strength lower extremities , thigh and legs : 5/5 Deep tendon reflexes : Normal Knee Jerk. Normal Ankle Jerk . Vertebral body tenderness to palpation over Ibrahim Test positive Lumbar Facet Loading Test positive over BL L4-L5, L5-S1 Straight Leg Raise: positive at 30 degrees right side/ left side Gaenslen's Test positive Sacral spine : Severe tenderness over the Sacroiliac joint: right side / left side Range of motion: Flexion of the lumbar spine <60 degrees Range of motion: Extension of the lumbar spine <20 degrees Gaenslen's Test positive right side / left side Bryan test: positive right side / left side Thigh Thrust Test positive right side / left side Sacral Thrust Test positive right side / left side Assessment and plan: Chronic LBP secondary to lumbar DDD, spondylosis with facet arthropathy without myelopathy Recommendation of BL RFA L4-L5, L5-S1. Pt exhibited substantial pain relief w prior facet blocks of the medial branches. Risks, benefits of procedure discussed and pt verbalized understanding. Admits to anticoagulant use or medical history of diabetes. Protocol for discontinuation/ continuation of medications pari procedure discussed. Minimal anesthesia provided, if clinically indicated, consisting of Versed and Fentanyl. All questions answered. I have spent less than 30 minutes on patient care today. Dr Somers was available by phone for the evaluation of this patient. The time was used to review the medical records including relevant urine studies and Prescription history (MAPs), review of the available imaging, evaluation and examination of the patient, coordination of care with the medical staff and if applicable referring physicians, as well as creation of the medical record PQRS Narrative: Smoking Status Current some day smoker Hx Alcohol Use (MH) Yes Home Medications: Ambulatory Orders Multivitamins, Thera [Multivitamin] 1 tab PO DAILY 05/03/16 Albuterol Inhaler [Ventolin Hfa Inhaler] 1 - 2 puff INHALATION Q6H PRN 08/17/18 Nitroglycerin Sl Tabs [Nitrostat] 0.4 mg SUBLINGUAL Q5M PRN 07/20/19 Pantoprazole [Protonix] 40 mg PO QAM 07/20/19 Zolpidem [Ambien] 10 mg PO HS PRN 11/12/20 Gabapentin 300 mg PO TID 06/17/22 metFORMIN HCL [Glucophage] 500 mg PO Q12H 07/07/22 Aspirin [[place] Aspirin EC] 1 tab PO DAILY 11/19/22 Celecoxib [CeleBREX] 200 mg PO DAILY 12/08/22 Rosuvastatin Calcium [Crestor] 40 mg PO HS 12/16/22 lisinopriL [Zestril] 5 mg PO DAILY 12/16/22 Controlled Substance Measures - Controlled Substance Measures Is patient prescribed a controlled substance at discharge?: No
== END ==
LOC: PNWHC3 07:49
PROVIDERS: ATTEND Specialist
DX: M51.37 Other intervertebral disc degeneration, lumbosacral region (principal); M47.817 Spondylosis without myelopathy or radiculopathy, lumbosacral region; G89.29 Other chronic pain; F17.200 Nicotine dependence, unspecified, uncomplicated; Z79.82 Long term (current) use of aspirin; Z88.8 Allergy status to other drugs, medicaments and biological substances
CPT/HCPCS: 99211

== ENCOUNTER → 2023-02-28 | Outpatient (CLI) | payer MEDICAID ==
[2023-02-28 12:22] VITALS: BP 140/83; PULSE 94; RESP 16; TEMP 98.3
--- NOTE | 2023-02-28 14:21 | P.PAINPG ---
PQRS Measure Charge Sheet Comment: A 62 yr old male with a history of severe and chronic LBP secondary to lumbar DDD and spondylosis with facet arthropathy without myelopathy presents today for evaluation s/p BL RFA L4-L5, L5-S1. Pt states he experienced 0% pain relief s/p procedure. Pain level is provoked at 7 /10 in intensity, constant, localized in the lumbar spine, stabbing in character w shooting towards his feet. Pain is provoked by walking/ standing for periods of 15 min or more. Pain is alleviated with PT years ago, physician guided home exercises daily x 3 yrs w his , heat, medications, topical, repositioning and rest. Oswestry axial pain score of 25. Interventional pain procedures completed include STAR L2-L3 x1, BL RFA L3-L5 Patient is currently on [place], Neurontin, Icy-Hot Patient denies any side effects of the medication(s), denies excessive drowsiness or sleepiness, denies suicidal ideation and reports that the current pain medication is helping to control the pain and improve activities of daily living. Patient denies any motor or sensory deficits. Patient denies any fever or night sweats, denies any change in the bowel movements or urination. Physical Examination: -Constitutional: Cooperative. Not in acute distress . - Neurologic: Cranial nerve II to XII intact. No focal neurological deficits. - Psychatric: Alert & oriented x 3. Matching mood & appropriate affect. Judgment and insight intact. - Musculoskeletal: Cervical spine: Muscle bulk/ tone/ strength in the bilateral upper extremities normal Vertebral body tenderness to palpation over Spurling test positive Distraction test positive Facet loading test positive TTP Thoracic spine Muscle bulk / tone/ strength in the bilateral paraspinal muscles normal Vertebral body tender to palpation over Facet loading test positive TTP Lumbar spine: Motor bulk/ tone/ strength lower extremities , thigh and legs : 5/5 Deep tendon reflexes : Normal Knee Jerk. Normal Ankle Jerk . Vertebral body tenderness to palpation over Ibrahim Test positive Lumbar Facet Loading Test positive over BL L4-L5, L5-S1 Straight Leg Raise: positive at 30 degrees right side/ left side Gaenslen's Test positive Sacral spine : Severe tenderness over the Sacroiliac joint: right side / left side Range of motion: Flexion of the lumbar spine <60 degrees Range of motion: Extension of the lumbar spine <20 degrees Gaenslen's Test positive right side / left side Bryan test: positive right side / left side Thigh Thrust Test positive right side / left side Sacral Thrust Test positive right side / left side Assessment and plan: Chronic LBP secondary to lumbar DDD, spondylosis with facet arthropathy without myelopathy Recommendation of BL iliolumbar ligament injections. May need a series for optimal pain relief. Risks, benefits of procedure discussed and pt verbalized understanding. Admits to anticoagulant use or medical history of diabetes. Protocol for discontinuation/ continuation of medications pari procedure discussed. Minimal anesthesia provided, if clinically indicated, consisting of Versed and Fentanyl. All questions answered. I have spent less than 30 minutes on patient care today. Dr Somers was available by phone for the evaluation of this patient. The time was used to review the medical records including relevant urine studies and Prescription history (MAPs), review of the available imaging, evaluation and examination of the patient, coordination of care with the medical staff and if applicable referring physicians, as well as creation of the medical record PQRS Narrative: Smoking Status Current some day smoker Hx Alcohol Use (MH) Yes Home Medications: Ambulatory Orders Multivitamins, Thera [Multivitamin] 1 tab PO DAILY 05/03/16 Albuterol Inhaler [Ventolin Hfa Inhaler] 1 - 2 puff INHALATION Q6H PRN 08/17/18 Nitroglycerin Sl Tabs [Nitrostat] 0.4 mg SUBLINGUAL Q5M PRN 07/20/19 Pantoprazole [Protonix] 40 mg PO QAM 07/20/19 Gabapentin 300 mg PO TID 06/17/22 metFORMIN HCL [Glucophage] 500 mg PO Q12H 07/07/22 Aspirin [Obion Aspirin EC] 1 tab PO DAILY 11/19/22 Celecoxib [CeleBREX] 200 mg PO DAILY 12/08/22 Rosuvastatin Calcium [Crestor] 40 mg PO DAILY 12/16/22 lisinopriL [Zestril] 5 mg PO DAILY 12/16/22 Controlled Substance Measures - Controlled Substance Measures Is patient prescribed a controlled substance at discharge?: No
== END ==
LOC: PNWHC3 09:03
PROVIDERS: ATTEND Specialist
DX: M47.817 Spondylosis without myelopathy or radiculopathy, lumbosacral region (principal); M51.37 Other intervertebral disc degeneration, lumbosacral region; G89.29 Other chronic pain; Z79.82 Long term (current) use of aspirin; F17.200 Nicotine dependence, unspecified, uncomplicated; Z88.8 Allergy status to other drugs, medicaments and biological substances
CPT/HCPCS: 99211

== ENCOUNTER 2023-04-05 08:31 | Day surgery (SDC) | payer MEDICAID ==
[2023-04-01 10:09] VITALS: BMI 28.8
[~2023-04-05 08:31] MED LIST changes: -LIDOCAINE 1% (10MG/ML) FOR IV START INTRADERMA PRN
[2023-04-05 09:27] LABS: Glucose,Whole Blood 115 mg/dL (70-110)
[2023-04-05 09:33] VITALS: PULSE 70; TEMP 98
[2023-04-05] MEDS ORDERED: methylPREDNISolone ACETATE 40 MG/ML 1 ML VIAL ONE (10:33)
--- NOTE | 2023-04-05 11:02 | FL ---
Fluoroscopy INDICATION: Pain FINDINGS: Fluoroscopy time: 21.1 seconds. Total dose area product (DAP) in uGy*m?, mGy*cm? (or similar): 0.1059 Images obtained: 3. IMPRESSION: 1. Documentation of fluoroscopy.
[2023-04-05 11:03] VITALS: BP 139/95; RESP 15
--- NOTE | 2023-04-05 15:48 | P.PCN ---
Description of Procedure: Preprocedure diagnosis. Bilateral iliolumbar ligament pain. Postprocedure diagnosis. As above. Procedure done. Bilateral iliolumbar ligament injection with steroid under fluoroscopic guidance. Anesthesia. Local infiltration of local anesthetics. Blood loss. None. Indication. Discussed the procedure and possible complications which may include infection bleeding nerve damage paralyzes aggravation of pain patient understands and QUESTIONS were answered. Procedure note. Targeting concentration in OR in prone position. Back prepped with chlorhexidine and draped in sterile fashion. After injecting 5 mL of plain 1% lidocaine subcutaneously a 22-gauge spinal needle was introduced under tunnel vision of the fluoroscope on the right iliolumbar ligament area just below the right L5 transverse process. The needle position confirmation by AP and crosstable lateral view, after negative aspiration, 3 mL solution was injected which consists of 1 mL of 40 mg Depo-Medrol mixed with 2 mL of preservative-free normal saline. In exactly the same way left iliolumbar ligament injected with same amount of solution. [place] were taken out. Disposition. Patient tolerated the procedure well. No complication. Discharged home in stable condition.
== END 2023-04-05 11:05 | disposition home or self-care (01) ==
LOC: ORPAIN 08:31
PROVIDERS: ATTEND Pain Medicine Interventional Pain Medicine
DX: M54.50 Low back pain, unspecified (principal); E11.9 Type 2 diabetes mellitus without complications; Z79.82 Long term (current) use of aspirin; Z88.8 Allergy status to other drugs, medicaments and biological substances
CPT/HCPCS: 20550; J1030